=== PATIENT | male | born 1955 | race Caucasian/White ===

== ENCOUNTER 2017-09-13 07:19 | Outpatient (RCR) | payer OTHER, SELFPAY ==
[2017-09-13 09:53] LABS: Absolute Lymphocyte Count 1.91 X10^3/ul (0.83-4.51); Absolute Neutrophil Count 3.1 X10^3/uL (2.0-7.7); Basophil# 0.03 X10^3/uL; Basophil% 0.5 % (0-1); Eosinophils% 1.7 % (0-5); Hematocrit 43.9 % (40-54); Hemoglobin 15.3 g/dl (13.0-16.5); Lymphocyte # 1.91 X10^3/ul (4.0); Lymphocyte % 32.6 % (19-41); Mean Corp Hgb Conc 34.9 g/gl (32-36); Mean Corpuscular Hgb 34.4 pg (27.0-32.0); Mean Corpuscular Volume 98.7 fL (80-94); Mean Platelet Vol. 10.1 fl (6.2-12.0); Monocyte# 0.65 X10^3/uL; Monocyte% 11.1 % (0-10); Neutrophil # 3.14 X10^3/uL (2.7-7.7); Neutrophil % 53.8 % (47-70); Platelet Count 133 K/mm3 (150-450); RBC Distribution Width CV 13.3 % (11.6-14.6); RBC Distribution Width SD 47.2 fl (35.1-43.9); Red Blood Count 4.45 M/mm3 (4.6-6.2); White Blood Count 5.9 K/mm3 (4.4-11.0)
[2017-09-13 09:56] LABS: POSITIVE COUNT NO; POSITIVE DIFFERENTIAL NO; POSITIVE MORPHOLOGY NO
[2017-09-13 10:31] LABS: AST(SGOT) 38 U/L (15-37); Alanine Aminotransfer ALT/SGPT 44 U/L (12-78); Albumin, Serum 3.6 g/dL (3.4-5.0); Alkaline Phosphatase 80 U/L (45-117); Globulin 3.1 g/dL (2.2-4.2); Protein, Total 6.7 g/dL (6.4-8.2)
== END 2017-09-13 08:00 | disposition home or self-care (01) ==
LOC: MTLAB 07:19
PROVIDERS: Family Provider Family Medicine; PCP Family Medicine; Visit Provider Internal Medicine Gastroenterology
DX: K74.60 Unspecified cirrhosis of liver (principal)
CPT/HCPCS: 36415; 80076; 85025

== ENCOUNTER 2017-11-06 07:01 | Outpatient (RCR) | payer OTHER, SELFPAY ==
[2017-11-06 10:14] LABS: Absolute Lymphocyte Count 1.33 X10^3/ul (0.83-4.51); Absolute Neutrophil Count 2.9 X10^3/uL (2.0-7.7); Basophil# 0.02 X10^3/uL; Basophil% 0.4 % (0-1); Eosinophils% 2.1 % (0-5); Hematocrit 44.5 % (40-54); Hemoglobin 15.1 g/dl (13.0-16.5); Lymphocyte # 1.33 X10^3/ul (4.0); Lymphocyte % 27.5 % (19-41); Mean Corp Hgb Conc 33.9 g/gl (32-36); Mean Corpuscular Hgb 33.7 pg (27.0-32.0); Mean Corpuscular Volume 99.3 fL (80-94); Mean Platelet Vol. 9.8 fl (6.2-12.0); Monocyte# 0.53 X10^3/uL; Neutrophil # 2.85 X10^3/uL (2.7-7.7); Platelet Count 123 K/mm3 (150-450); RBC Distribution Width CV 13.5 % (11.6-14.6); RBC Distribution Width SD 48.9 fl (35.1-43.9); Red Blood Count 4.48 M/mm3 (4.6-6.2); White Blood Count 4.8 K/mm3 (4.4-11.0)
[2017-11-06 10:20] LABS: POSITIVE COUNT NO; POSITIVE DIFFERENTIAL NO; POSITIVE MORPHOLOGY NO
[2017-11-06 10:50] LABS: AST(SGOT) 36 U/L (15-37); Alanine Aminotransfer ALT/SGPT 39 U/L (16-61); Albumin, Serum 3.7 g/dL (3.2-5.0); Alkaline Phosphatase 91 U/L (45-117); Bilirubin, Direct 0.19 mg/dL (0.00-0.30); Protein, Total 6.7 g/dL (6.4-8.2)
== END 2017-11-06 08:00 | disposition home or self-care (01) ==
LOC: LAB 07:01
PROVIDERS: Family Provider Family Medicine; PCP Family Medicine; Visit Provider Internal Medicine Gastroenterology
DX: K74.60 Unspecified cirrhosis of liver (principal)
CPT/HCPCS: 36415; 80076; 85025

== ENCOUNTER → 2017-11-29 12:50 | Outpatient (CLI) | payer OTHER, SELFPAY ==
--- NOTE | 2017-11-29 12:54 | RAD_ITS ---
STUDY: X-RAY - RIGHT WRIST REASON FOR EXAM: Male, 62 years old. Injury. Pain. TECHNIQUE: 4 view(s) of the wrist were obtained. COMPARISON: None. FINDINGS: Normal visualized distal radius and ulna. Normal radiocarpal articulation. Normal distal radioulnar articulation. Normal carpal bones. Normal carpal articulations. There is degenerative arthrosis of the carpometacarpal articulation of the thumb. Normal second through fifth carpometacarpal articulations. Normal visualized metacarpal bones. The soft tissue structures are unremarkable. There is no demonstrated acute fracture. RAD/Wrist min 3 Views IMPRESSION: No acute fracture or dislocation. Electronically Signed: Brenden Owens MD at 9:01 EDT , Service support ,
== END ==
PROVIDERS: Family Provider Internal Medicine; PCP Internal Medicine; Visit Provider Internal Medicine
DX: M25.531 Pain in right wrist (principal)
CPT/HCPCS: 73110

== ENCOUNTER → 2017-12-19 07:44 | Outpatient (CLI) | payer OTHER, SELFPAY ==
--- NOTE | 2017-12-19 07:56 | US_ITS ---
STUDY: ABDOMINAL ULTRASOUND - RIGHT UPPER QUADRANT REASON FOR VISIT: Male, 62 years old. History of autoimmune hepatitis. TECHNIQUE: Ultrasound evaluation of the right upper quadrant was performed with real-time and static herrera-scale imaging. TECHNICAL QUALITY: Adequate. COMPARISON: Comparison is made with prior study dated January 17, 2017. FINDINGS: Liver: The liver measures 10.9 cm. There is increased echogenicity consistent with fatty infiltration. The bile ducts are within normal limits. There is hepatic color flow. The direction of portal flow is hepatopetal. There is no demonstrated mass lesion. Gallbladder: Normal distended gallbladder. The gallbladder wall measures 2.7 mm. There is a negative sonographic Quintero's sign. There is no pericholecystic fluid. There are no gallstones. Common Bile Duct (C.B.D.): The common bile duct measures 2.0 mm. Pancreas: Normal size of the head, body of the pancreas. The tail portion was obscured due to overlying bowel gas. There is normal echogenicity of the pancreas. There is no demonstrated pancreatic mass or cyst. Right Kidney: Normal size of the right kidney. The right kidney measures 11.0 cm x 4.5 cm x 6.0 cm. Normal renal cortex. The right cortex measures 1.5 cm. There is no demonstrated renal mass or cyst. There is no right hydronephrosis. US/Liver IMPRESSION: Fatty infiltration of the liver. Electronically Signed: Jelani Miller MD at 8:55 EDT Tel [phone], Service support ,
== END ==
PROVIDERS: Family Provider Internal Medicine; PCP Internal Medicine; Visit Provider Internal Medicine
DX: K75.4 Autoimmune hepatitis (principal)
CPT/HCPCS: 76705

== ENCOUNTER → 2017-12-27 12:06 | Outpatient (CLI) | payer OTHER, SELFPAY ==
[2017-12-27 12:12] LABS: Bacteria 0 SEEN /hpf (None Seen); Mucous, Urine 0 SEEN /hpf (<or=2+); Red Blood Cells-Urine 0 SEEN /hpf (0-5); White Blood Cells 0 SEEN /hpf (0-5)
[2017-12-27 12:29] LABS: Color, Urine Yellow (Yellow); Glucose, Dipstick Normal (Normal); Ketone-Dipstick Negative (Negative); Leukocyte Esterase-Dipstick Negative /ul (Negative); Nitrite-Dipstick Negative (Negative); Occult Blood-Urine Negative /ul (Negative); Protein-Dipstick Negative (Negative); Urine Bilirubin Dipstick Negative (Negative); Urine Clarity Clear (Clear); Urine Urobilinogen Normal (Normal)
[2017-12-27 12:38] LABS: Squamous Epithelial Cells - UA 0-5 SEEN /hpf (0-5)
[2017-12-27 12:44] LABS: Vitamin B12 1044 pg/mL (211-911)
[2017-12-27 12:49] LABS: ALB/GLOB Ratio 1.4 RATIO (0.9-2.4); AST(SGOT) 33 U/L (15-37); Alanine Aminotransfer ALT/SGPT 36 U/L (16-61); Albumin, Serum 3.8 g/dL (3.2-5.0); Alkaline Phosphatase 88 U/L (45-117); Anion Gap 8 (5-15); BUN 14 mg/dL (7-18); BUN/Creat Ratio 15.1 RATIO (10-20); Calcium,Total 8.7 mg/dL (8.5-10.1); Chloride 105 mmol/L (98-107); Creatinine, Serum 0.93 mg/dL (0.70-1.30); EST Glomerular Filtration Rate 87 mL/min (>60); Est Glom Filt Rate - Afr Amer 105 mL/min (>60); Globulin 2.8 g/dL (2.2-4.2); Glucose 85 mg/dL (74-106); Magnesium 2.2 mg/dL (1.6-2.6); PSA,Total - Annual Screen 0.39 ng/mL (0.00-4.00); Potassium 4.3 mmol/L (3.5-5.1); Protein, Total 6.6 g/dL (6.4-8.2); Sodium Level 144 mmol/L (136-145)
[2017-12-27 13:12] LABS: International Normalized Ratio 1.1
[2017-12-27 13:13] LABS: Partial Thromboplast Time 31.9 Seconds (24.1-36.2)
[2017-12-28 08:50] LABS: AFP, Tumor Marker 2.4 ng/mL (0.0-8.3)
== END ==
PROVIDERS: Visit Provider Internal Medicine
DX: I48.91 Unspecified atrial fibrillation (principal); D75.89 Other specified diseases of blood and blood-forming organs; K75.4 Autoimmune hepatitis; R25.2 Cramp and spasm; Z12.5 Encounter for screening for malignant neoplasm of prostate
CPT/HCPCS: 80053; 81001; 82105; 82607; 82746; 83735; 84153; 85610; 85730; G0103

== ENCOUNTER → 2018-01-19 09:27 | Outpatient (CLI) | payer OTHER, SELFPAY ==
--- NOTE | 2018-01-19 09:31 | RAD_ITS ---
STUDY: X-RAY - THORACIC SPINE REASON FOR EXAM: Male, 62 years old. Pain. TECHNIQUE: 3 view(s) of the thoracic spine were obtained. COMPARISON: None. FINDINGS: Normal kyphosis of the thoracic spine. There is no substantial scoliosis. Normal thoracic vertebrae and endplates. Normal disc space heights. The soft tissue structures are unremarkable. RAD/Thoracic Spine 3 Views IMPRESSION: Normal x-ray examination of the thoracic spine. Electronically Signed: Brenden Owens MD at 16:52 EDT , Service support ,
--- NOTE | 2018-01-19 09:31 | RAD_ITS ---
STUDY: X-RAY - UNILATERAL RIBS ( RIGHT ) REASON FOR EXAM: Male, 62 years old. Pain. Injury. TECHNIQUE: 4 view(s) of the ribs. COMPARISON: None. FINDINGS: Normal visualized ribs without a demonstrated fracture. The visualized lung is clear and expanded. RAD/Ribs Unil 2V No CXR IMPRESSION: Normal x-ray examination of the ribs. Electronically Signed: Brenden Owens MD at 17:02 EDT , Service support ,
== END ==
PROVIDERS: Family Provider Internal Medicine; PCP Internal Medicine; Visit Provider Internal Medicine
DX: M25.511 Pain in right shoulder (principal)
CPT/HCPCS: 71100; 72072

== ENCOUNTER → 2018-04-04 08:10 | Outpatient (CLI) | payer OTHER, SELFPAY ==
[2018-04-04 10:05] LABS: Absolute Lymphocyte Count 1.36 X10^3/ul (0.83-4.51); Absolute Neutrophil Count 3.1 X10^3/uL (2.0-7.7); Basophil# 0.02 X10^3/uL; Basophil% 0.4 % (0-1); Eosinophil# 0.08 X10^3/uL; Eosinophils% 1.6 % (0-5); Hematocrit 44.1 % (40-54); Hemoglobin 15.3 g/dl (13.0-16.5); Lymphocyte # 1.36 X10^3/ul (4.0); Lymphocyte % 27.3 % (19-41); Mean Corp Hgb Conc 34.7 g/gl (32-36); Mean Corpuscular Hgb 32.8 pg (27.0-32.0); Mean Corpuscular Volume 94.4 fL (80-94); Mean Platelet Vol. 9.7 fl (6.2-12.0); Monocyte# 0.39 X10^3/uL; Monocyte% 7.8 % (0-10); Neutrophil # 3.13 X10^3/uL (2.7-7.7); Neutrophil % 62.7 % (47-70); Platelet Count 143 K/mm3 (150-450); RBC Distribution Width SD 43.9 fl (35.1-43.9); Red Blood Count 4.67 M/mm3 (4.6-6.2)
[2018-04-04 10:11] LABS: POSITIVE COUNT NO; POSITIVE DIFFERENTIAL NO; POSITIVE MORPHOLOGY NO
[2018-04-04 10:39] LABS: AST(SGOT) 33 U/L (15-37); Alanine Aminotransfer ALT/SGPT 33 U/L (16-61); Albumin, Serum 3.7 g/dL (3.2-5.0); Alkaline Phosphatase 90 U/L (45-117); Bilirubin, Direct 0.24 mg/dL (0.00-0.30); Globulin 3.3 g/dL (2.2-4.2)
== END ==
PROVIDERS: Internal Medicine Gastroenterology; Family Provider Internal Medicine; PCP Internal Medicine; Visit Provider Internal Medicine
DX: K74.60 Unspecified cirrhosis of liver (principal)
CPT/HCPCS: 36415; 80076; 85025

== ENCOUNTER → 2018-06-20 07:15 | Outpatient (CLI) | payer OTHER, SELFPAY ==
--- NOTE | 2018-06-20 07:42 | US_ITS ---
STUDY: ABDOMINAL ULTRASOUND - RIGHT UPPER QUADRANT REASON FOR VISIT: Male, 62 years old. Autoimmune hepatitis. Liver biopsy 2017. TECHNIQUE: Ultrasound evaluation of the right upper quadrant was performed with real-time and static herrera-scale imaging. TECHNICAL QUALITY: Adequate. COMPARISON: Right upper quadrant abdominal ultrasound 12/19/2017. Correlation CT abdomen 01/18/2017. FINDINGS: Liver: The liver measures 15.5 cm sagittal. There is diffuse hyperechogenicity of the liver again seen consistent with fatty infiltration, appears relatively unchanged where comparable. The bile ducts visualized within normal limits. There is hepatic color flow. The direction of portal flow appears hepatopetal. There is no demonstrated mass lesion identified. Gallbladder: Normal distended gallbladder. The gallbladder wall measures 2.4 mm thick. There is a negative sonographic Quintero's sign. There is no pericholecystic fluid. There are no gallstones identified. Common Bile Duct (C.B.D.): The common bile duct measures 2.9 mm. Pancreas: Normal size of the head, body and tail of the pancreas. There is normal echogenicity of the pancreas. There is no demonstrated pancreatic mass or cyst. Visualized pancreas shows no Ductal dilatation the portions of the head and tail are partially disturbed by overlying bowel gas. Right Kidney: Normal size of the right kidney. The right kidney measures 11.0 x 4.1 x 5.9 cm. Normal renal cortex. The right cortex measures 1.9 cm. There is no demonstrated renal mass or cyst. There is no right hydronephrosis. US/Liver IMPRESSION: Nonacute right upper quadrant ultrasound examination with relatively unchanged diffuse hepatic fatty infiltration again seen. Electronically Signed: Art Todd, at 11:47 EDT Tel , Service support ,
[2018-06-20 08:53] LABS: Absolute Lymphocyte Count 1.18 X10^3/ul (0.83-4.51); Absolute Neutrophil Count 2.6 X10^3/uL (2.0-7.7); Basophil# 0.02 X10^3/uL; Basophil% 0.5 % (0-1); Eosinophil# 0.08 X10^3/uL; Eosinophils% 1.9 % (0-5); Hematocrit 44.2 % (40-54); Hemoglobin 15.3 g/dl (13.0-16.5); Lymphocyte # 1.18 X10^3/ul (4.0); Lymphocyte % 28.2 % (19-41); Mean Corp Hgb Conc 34.6 g/gl (32-36); Mean Corpuscular Volume 95.5 fL (80-94); Mean Platelet Vol. 9.6 fl (6.2-12.0); Monocyte# 0.29 X10^3/uL; Monocyte% 6.9 % (0-10); Neutrophil # 2.61 X10^3/uL (2.7-7.7); Neutrophil % 62.3 % (47-70); Platelet Count 131 K/mm3 (150-450); RBC Distribution Width CV 13.2 % (11.6-14.6); RBC Distribution Width SD 45.1 fl (35.1-43.9); Red Blood Count 4.63 M/mm3 (4.6-6.2); White Blood Count 4.2 K/mm3 (4.4-11.0)
[2018-06-20 09:19] LABS: POSITIVE COUNT NO; POSITIVE DIFFERENTIAL NO; POSITIVE MORPHOLOGY NO
[2018-06-20 09:40] LABS: AST(SGOT) 26 U/L (15-37); Alanine Aminotransfer ALT/SGPT 30 U/L (16-61); Albumin, Serum 3.7 g/dL (3.2-5.0); Alkaline Phosphatase 82 U/L (45-117); Bilirubin, Direct 0.21 mg/dL (0.00-0.30); Globulin 3.3 g/dL (2.2-4.2)
[2018-06-22 13:44] LABS: AFP, Tumor Marker 2.8 ng/mL (0.0-8.3)
== END ==
PROVIDERS: Family Provider Internal Medicine; PCP Internal Medicine; Referring Provider Internal Medicine; Visit Provider Internal Medicine
DX: K75.4 Autoimmune hepatitis (principal)
CPT/HCPCS: 36415; 76705; 80076; 82105; 85025

== ENCOUNTER → 2018-06-27 09:08 | Outpatient (CLI) | payer OTHER, SELFPAY ==
[2018-06-27 10:45] LABS: Erythrocyte Sedimentation Rate 3 mm/hr (0-20)
[2018-06-27 11:18] LABS: CRP < 2.90 mg/L (0.0-3.0); Rheumatoid Factor < 10.0 IU/mL (<15)
[2018-06-28 10:28] LABS: Hep B Surface Antibodies Non Reactive (.); Hep C Antibodies 0.1 s/co ratio (0.0-0.9)
[2018-06-29 09:52] LABS: ANTINUCLEAR ANTIBODIES DIRECT Negative (Negative)
== END ==
PROVIDERS: Family Provider Internal Medicine; PCP Internal Medicine; Referring Provider Internal Medicine; Visit Provider Internal Medicine
DX: K75.4 Autoimmune hepatitis (principal); M25.50 Pain in unspecified joint
CPT/HCPCS: 36415; 85652; 86038; 86140; 86431; 86706; 86803

== ENCOUNTER → 2018-09-24 07:11 | Outpatient (CLI) | payer OTHER, SELFPAY ==
[2018-09-24 10:10] LABS: Absolute Lymphocyte Count 1.35 X10^3/ul (0.83-4.51); Absolute Neutrophil Count 2.8 X10^3/uL (2.0-7.7); Basophil# 0.01 X10^3/uL; Basophil% 0.2 % (0-1); Eosinophil# 0.08 X10^3/uL; Eosinophils% 1.7 % (0-5); Hematocrit 45.2 % (40-54); Hemoglobin 15.6 g/dl (13.0-16.5); Lymphocyte # 1.35 X10^3/ul (4.0); Lymphocyte % 29.2 % (19-41); Mean Corp Hgb Conc 34.5 g/gl (32-36); Mean Corpuscular Hgb 33.1 pg (27.0-32.0); Mean Platelet Vol. 10.3 fl (6.2-12.0); Monocyte# 0.42 X10^3/uL; Monocyte% 9.1 % (0-10); Neutrophil # 2.75 X10^3/uL (2.7-7.7); Neutrophil % 59.6 % (47-70); Platelet Count 145 K/mm3 (150-450); RBC Distribution Width CV 13.4 % (11.6-14.6); RBC Distribution Width SD 46.1 fl (35.1-43.9); Red Blood Count 4.71 M/mm3 (4.6-6.2); White Blood Count 4.6 K/mm3 (4.4-11.0)
[2018-09-24 10:18] LABS: POSITIVE COUNT NO; POSITIVE DIFFERENTIAL NO; POSITIVE MORPHOLOGY NO
[2018-09-24 10:20] LABS: AST(SGOT) 29 U/L (15-37); Alanine Aminotransfer ALT/SGPT 28 U/L (16-61); Alkaline Phosphatase 92 U/L (45-117); Bilirubin, Direct 0.19 mg/dL (0.00-0.30)
== END ==
PROVIDERS: Family Provider Internal Medicine; PCP Internal Medicine; Referring Provider Internal Medicine; Visit Provider Internal Medicine
DX: K75.4 Autoimmune hepatitis (principal)
CPT/HCPCS: 36415; 80076; 85025

== ENCOUNTER → 2019-01-01 12:45 | Outpatient (CLI) | payer OTHER, SELFPAY ==
--- NOTE | 2019-01-01 12:50 | CT_ITS ---
STUDY: CT ABDOMEN WITH CONTRAST REASON FOR EXAM: Male, 63 years old. Cirrhosis, on Augmentin hepatitis 2 years ago with treatment. No prior surgery. RADIATION DOSAGE (If Supplied By Facility): CTDIvol = ( 14.36 ) mGy, DLP = ( 301.36 ) mGycm TECHNIQUE: Transaxial images were obtained post I.V. administration of 100mL IV Isovue 300, and oral contrast. Sagittal and coronal images were reconstructed. Individualized dose optimization techniques were used for this CT. COMPARISON: January 18, 2017. FINDINGS: The visualized lung bases demonstrate a 1.9 mm, round, noncalcified margin in the left lateral periphery of the left lower lobe, sequence 2, image 15. There are small foci of scattered subsegmental atelectasis. There is no pleural effusion. There is no pneumothorax. The visualized portions of the heart are within normal limits. Normal appearing liver. Normal gallbladder and extrahepatic biliary system. Normal spleen. Normal pancreas. Normal bilateral adrenal glands. Normal right kidney. Normal left kidney. Normal visualized stomach. Normal small intestine. A few, scattered, uncomplicated colonic diverticula are identified. There are surgical clips in the region of the appendix consistent with a prior appendectomy. There is no free fluid. There is no free air. Normal abdominal aorta except for scattered calcified plaque throughout visualized aortoiliac system. Normal inferior vena cava. Normal retroperitoneum. There are stable, subcentimeter, grouped lymph nodes in the mesentery adjacent to the splenic flexure seen best on the current sequence 2, images 49 through 48 and on the comparison exam sequence 2 images 56 and 55. These findings are nonspecific. Normal abdominal wall. Normal osseous structures. CT/Abdomen WITH IV Contrast IMPRESSION: Nonspecific, 2 mm noncalcified nodule in the left lateral periphery of the left lower lobe on sequence 2, image 15. Normal appearing liver gallbladder and biliary system. Diverticulosis without evident diverticulitis. Atherosclerotic peripheral vascular disease. Nonspecific lymph nodes in the mesentery adjacent to the splenic flexure. These are stable. Consider continued follow-up to document stability. Of note, multiple additional root of mesentery lymph nodes are present that also appears stable. No suspicious lytic or blastic osseous finding. Electronically Signed: Leroy Juan MD at 13:47 EDT , Service support ,
[2019-01-01 13:00] LABS: CREATININE FINGERSTICK 0.8 mg/dL (0.70-1.30); EGFR FINGERSTICK > 60.0000 mL/min (>60)
== END ==
PROVIDERS: Family Provider Internal Medicine; PCP Internal Medicine; Referring Provider Internal Medicine Gastroenterology; Visit Provider Internal Medicine Gastroenterology
DX: K74.60 Unspecified cirrhosis of liver (principal)
CPT/HCPCS: 74160; Q9967

== ENCOUNTER → 2019-01-04 10:01 | Outpatient (CLI) | payer OTHER, SELFPAY ==
[2019-01-04 10:54] LABS: ALB/GLOB Ratio 1.6 RATIO (0.9-2.4); AST(SGOT) 32 U/L (15-37); Alanine Aminotransfer ALT/SGPT 26 U/L (16-61); Albumin, Serum 4.4 g/dL (3.2-5.0); Alkaline Phosphatase 91 U/L (45-117); Anion Gap 6 (5-15); BUN 19 mg/dL (7-18); BUN/Creat Ratio 17.9 RATIO (10-20); Calcium,Total 9.2 mg/dL (8.5-10.1); Chloride 106 mmol/L (98-107); Creatinine, Serum 1.06 mg/dL (0.70-1.30); EST Glomerular Filtration Rate 75 mL/min (>60); Est Glom Filt Rate - Afr Amer 90 mL/min (>60); Globulin 2.7 g/dL (2.2-4.2); Glucose 84 mg/dL (74-106); PSA,Total - Annual Screen 0.31 ng/mL (0.00-4.00); Potassium 4.4 mmol/L (3.5-5.1); Protein, Total 7.1 g/dL (6.4-8.2); Sodium Level 140 mmol/L (136-145)
[2019-01-05 15:09] LABS: AFP, Tumor Marker 2.8 ng/mL (0.0-8.3)
== END ==
PROVIDERS: Family Provider Internal Medicine; PCP Internal Medicine; Referring Provider Internal Medicine; Visit Provider Internal Medicine
DX: I48.91 Unspecified atrial fibrillation (principal); K75.4 Autoimmune hepatitis; Z12.5 Encounter for screening for malignant neoplasm of prostate
CPT/HCPCS: 80053; 82105; 84153; G0103

== ENCOUNTER → 2019-02-22 13:51 | Outpatient (CLI) | payer OTHER, SELFPAY ==
--- NOTE | 2019-02-22 13:57 | CT_ITS ---
STUDY: CARDIAC CALCIUM SCORING - CT CHEST REASON FOR EXAM: Male, 63 years old. Screening RADIATION DOSAGE (If Supplied By Facility): CTDIvol = ( 12.19 ) mGy, DLP = ( 170.66 ) mGycm TECHNIQUE: Axial non-enhanced images were acquired through the heart for the sole purpose of measuring coronary artery calcium. Individualized dose optimization techniques were used for this CT. COMPARISON: None. FINDINGS: Visualized surrounding anatomy: 4 mm nodule in the right upper lobe (image 19 series 3). Left Main Coronary Artery: 0 Left Anterior Descending Artery: 0 Left Circumflex Artery: 0 Right Coronary Artery: 0 Total Calcium Score: 0 CT/Limited Chest CT w/CCTA IMPRESSION: A Calcium Score of 0 places the patient in the approximate 0 percentile, based on the [employer] data calculator. 4 mm nodule in the right lung. A dedicated chest CT is recommended. Please go to: [email or web address].org/Calcium/input.aspx , for a description of the calculator. Electronically Signed: Josh Padron, at 15:31 EDT Tel , Service support ,
[2019-02-22 14:03] VITALS: BP 131/78; PULSE 56; RESP 16; O2SAT 100; BMI 22.8
--- NOTE | 2019-02-25 13:21 | CA.SCORE ---
Calcium Scoring Date of Study:: 02/25/19 Coronary Calcium Scoring: High-resolution Computed Tomographic imaging of the chest was performed on [02/22/2019], with particular attention paid to the coronary arteries. Images from the examination were analyzed for the presence and extent of coronary artery calcification , using coronary calcium quantification software. The patient tolerated the procedure well and there were no complications. The results of the coronary calcification analysis are provided below. - Findings Left Main (LM): 0 Left Anterior Descending (LAD): 0 Left Circumflex (LCX): 0 Right Coronary Artery (RCA): 0 Total Agatston Score: 0 Percentile Rankin - Conclusion Calcium Scoring Interpretation: Calcium Score Interpretation 0 No identifiable atherosclerotic plaque. Very low cardiovascular disease risk. <5% chance of presence coronary artery disease A Negative Examination 1-10 Minimal Plaque burden. Significant coronary artery disease very unlikely. 11-100 Mild plaque burden. Likely mild or minimal coronary atherosclerosis. 101-400 Moderate plaque burden Moderate non-obstructive coronary artery disease highly likely. Over 400 Extensive plaque burden. High likelihood of at least one significant coronary stenosis (>50% diameter) Calcium Score: 0 Negative Examination - No significant atherosclerotic plaquing is noted.
== END ==
PROVIDERS: Family Provider Internal Medicine; PCP Internal Medicine; Referring Provider Internal Medicine; Visit Provider Internal Medicine
DX: Z13.6 Encounter for screening for cardiovascular disorders (principal)
CPT/HCPCS: 75571; 76380

== ENCOUNTER → 2019-03-12 06:50 | Outpatient (CLI) | payer OTHER, SELFPAY ==
[2019-02-22 14:03] VITALS: BMI 22.8
--- NOTE | 2019-03-12 06:57 | CT_ITS ---
STUDY: CT CHEST WITH CONTRAST REASON FOR EXAM: Male, 63 years old. Lung nodule follow-up. History of autoimmune hepatitis. RADIATION DOSAGE (If Supplied By Facility): CTDIvol = ( 12.95 ) mGy, DLP = ( 358.34 ) mGycm TECHNIQUE: Transaxial imaging was performed following intravenous administration of 100 IV Isovue 300. Multiplanar coronal and sagittal images were reformatted. Individualized dose optimization techniques were used for this CT. COMPARISON: Calcium scoring CT chest, February 22, 2019. FINDINGS: The lungs are well expanded. There is a 4 mm calcified granuloma in the anterior right upper lobe (image 30, series 4. There is a 5 mm soft tissue nodule in the left upper lobe along the oblique fissure best seen on image 74 of series 4. No other masses or infiltrates are seen. There is no demonstrated pleural abnormality. Normal heart and pericardium. Normal mediastinum. Normal hilar regions. Normal enhanced pulmonary arteries. Normal aorta arch and descending thoracic aorta. Normal osseous structures. There are minimal degenerative changes of the lower thoracic spine. There are small hypodensities in the right thyroid. There is no demonstrated abnormality of the visualized upper abdomen. CT/Chest WITH Contrast IMPRESSION: 1. 5 millimeter nodule in the left lower lobe. A 12 month follow-up should be considered due to the upper lobe location. 2. Calcified granuloma in the right upper lobe. 3. Otherwise normal CT of the chest. Electronically Signed: Chacho Wilson DO at 16:53 EDT Tel [phone], Service support ,
[2019-03-12 07:06] LABS: CREATININE FINGERSTICK 0.9 mg/dL (0.70-1.30); EGFR FINGERSTICK > 60.0000 mL/min (>60)
== END ==
PROVIDERS: Family Provider Internal Medicine; PCP Internal Medicine; Referring Provider Internal Medicine; Visit Provider Internal Medicine
DX: R91.1 Solitary pulmonary nodule (principal); Z01.812 Encounter for preprocedural laboratory examination
CPT/HCPCS: 71260; Q9967

== ENCOUNTER 2019-03-27 07:04 | Outpatient (RCR) | payer OTHER, SELFPAY ==
[2019-02-22 14:03] VITALS: BMI 22.8
[2019-03-27 10:16] LABS: Absolute Lymphocyte Count 1.32 X10^3/uL (0.83-4.51); Absolute Neutrophil Count 3.2 X10^3/uL (2.0-7.7); Basophil# 0.02 X10^3/uL; Basophil% 0.4 % (0-1); Hematocrit 45.7 % (40-54); Hemoglobin 15.4 g/dL (13.0-16.5); Lymphocyte # 1.32 X10^3/ul (4.0); Lymphocyte % 25.9 % (19-41); Mean Corp Hgb Conc 33.7 g/dL (32-36); Mean Corpuscular Hgb 33.1 pg (27.0-32.0); Mean Corpuscular Volume 98.3 fL (80-94); Mean Platelet Vol. 10.2 fl (6.2-12.0); Monocyte# 0.41 X10^3/uL; NRBC Flagged by Analyzer 0 % (0-5); Neutrophil # 3.24 X10^3/uL (2.7-7.7); Neutrophil % 63.5 % (47-70); Platelet Count 147 K/mm3 (150-450); RBC Distribution Width CV 13.1 % (11.6-14.6); RBC Distribution Width SD 47.7 fl (35.1-43.9); Red Blood Count 4.65 M/mm3 (4.6-6.2); White Blood Count 5.1 K/mm3 (4.4-11.0)
[2019-03-27 10:49] LABS: ALB/GLOB Ratio 1.3 RATIO (0.9-2.4); AST(SGOT) 22 U/L (15-37); Alanine Aminotransfer ALT/SGPT 27 U/L (16-61); Alkaline Phosphatase 86 U/L (45-117); Anion Gap 8 (5-15); BUN 18 mg/dL (7-18); BUN/Creat Ratio 19.4 RATIO (10-20); Calcium,Total 9.1 mg/dL (8.5-10.1); Chloride 107 mmol/L (98-107); Creatinine, Serum 0.93 mg/dL (0.70-1.30); EST Glomerular Filtration Rate 87 mL/min (>60); Est Glom Filt Rate - Afr Amer 105 mL/min (>60); Glucose 84 mg/dL (74-106); Sodium Level 143 mmol/L (136-145)
[2019-03-28 10:37] LABS: AFP, Tumor Marker 2.6 ng/mL (0.0-8.3)
[2019-04-01 14:13] LABS: Bilirubin, Direct 0.18 mg/dL (0.00-0.30)
== END 2019-04-10 23:59 ==
LOC: LAB.FUTURE 07:04
PROVIDERS: Family Provider Internal Medicine; PCP Internal Medicine; Referring Provider Internal Medicine; Visit Provider Internal Medicine
DX: K75.4 Autoimmune hepatitis (principal)
CPT/HCPCS: 36415; 80053; 82105; 82248; 85025

== ENCOUNTER 2019-06-20 07:01 | Outpatient (RCR) | payer OTHER, SELFPAY ==
[2019-02-22 14:03] VITALS: BMI 22.8
[2019-06-20 10:41] LABS: Absolute Lymphocyte Count 0.98 X10^3/uL (0.83-4.51); Absolute Neutrophil Count 3.5 X10^3/uL (2.0-7.7); Basophil# 0.03 X10^3/uL; Basophil% 0.6 % (0-1); Eosinophil# 0.09 X10^3/uL; Eosinophils% 1.8 % (0-5); Hematocrit 45.3 % (40-54); Hemoglobin 15.1 g/dL (13.0-16.5); Lymphocyte # 0.98 X10^3/ul (4.0); Lymphocyte % 19.1 % (19-41); Mean Corp Hgb Conc 33.3 g/dL (32-36); Mean Corpuscular Volume 98.9 fL (80-94); Mean Platelet Vol. 10.1 fl (6.2-12.0); Monocyte# 0.49 X10^3/uL; Monocyte% 9.6 % (0-10); NRBC Flagged by Analyzer 0 % (0-5); Neutrophil # 3.53 X10^3/uL (2.7-7.7); Neutrophil % 68.7 % (47-70); Platelet Count 133 K/mm3 (150-450); RBC Distribution Width CV 12.8 % (11.6-14.6); RBC Distribution Width SD 46.9 fl (35.1-43.9); Red Blood Count 4.58 M/mm3 (4.6-6.2); White Blood Count 5.1 K/mm3 (4.4-11.0)
[2019-06-20 11:14] LABS: AST(SGOT) 28 U/L (15-37); Alanine Aminotransfer ALT/SGPT 26 U/L (16-61); Albumin, Serum 3.9 g/dL (3.2-5.0); Alkaline Phosphatase 85 U/L (45-117); Bilirubin, Direct 0.25 mg/dL (0.00-0.30); Protein, Total 6.9 g/dL (6.4-8.2)
[2019-06-21 08:56] LABS: AFP, Tumor Marker 2.5 ng/mL (0.0-8.3)
== END 2019-07-11 23:59 ==
LOC: LAB.FUTURE 07:01
PROVIDERS: Family Provider Internal Medicine; PCP Internal Medicine; Referring Provider Internal Medicine; Visit Provider Internal Medicine
DX: K75.4 Autoimmune hepatitis (principal)
CPT/HCPCS: 36415; 80076; 82105; 85025

== ENCOUNTER → 2019-06-25 09:49 | Outpatient (CLI) | payer OTHER, SELFPAY ==
[2019-02-22 14:03] VITALS: BMI 22.8
--- NOTE | 2019-06-25 09:53 | US_ITS ---
STUDY: ABDOMINAL ULTRASOUND - RIGHT UPPER QUADRANT REASON FOR VISIT: Male, 63 years old autoimmune hepatitis. TECHNIQUE: Ultrasound evaluation of the right upper quadrant was performed with real-time and static herrera-scale imaging. TECHNICAL QUALITY: Adequate. COMPARISON: None. FINDINGS: Liver: The liver measures 14.5 cm. There is normal echogenicity of the liver. The bile ducts are within normal limits. There is hepatic color flow. The direction of portal flow is hepatopetal. There is no demonstrated mass lesion. Gallbladder: Normal distended gallbladder. The gallbladder wall measures 1.9 mm. There is a negative sonographic Quintero's sign. There is no pericholecystic fluid. There are no gallstones. Common Bile Duct (C.B.D.): The common bile duct measures 2.6 mm. Pancreas: Normal size of the head, body and tail of the pancreas. There is normal echogenicity of the pancreas. There is no demonstrated pancreatic mass or cyst. Right Kidney: Normal size of the right kidney. The right kidney measures 10.3 cm in length. Normal renal cortex. There is no demonstrated renal mass or cyst. There is no right hydronephrosis. US/Liver IMPRESSION: Within normal limits right upper quadrant ultrasound examination. Electronically Signed: Shirley Knowles MD at 16:31 EDT Tel , Service support ,
== END ==
PROVIDERS: Family Provider Internal Medicine; PCP Internal Medicine; Referring Provider Internal Medicine; Visit Provider Internal Medicine
DX: K75.4 Autoimmune hepatitis (principal)
CPT/HCPCS: 76705

== ENCOUNTER 2019-10-04 07:22 | Outpatient (RCR) | payer MEDICARE, BC, SELFPAY ==
[2019-02-22 14:03] VITALS: BMI 22.8
[2019-10-04 10:22] LABS: Absolute Lymphocyte Count 1.33 X10^3/uL (0.83-4.51); Absolute Neutrophil Count 2.8 X10^3/uL (2.0-7.7); Basophil# 0.03 X10^3/uL; Basophil% 0.6 % (0-1); Eosinophil# 0.11 X10^3/uL; Eosinophils% 2.3 % (0-5); Hematocrit 46.1 % (40-54); Hemoglobin 15.6 g/dL (13.0-16.5); Lymphocyte # 1.33 X10^3/ul (4.0); Lymphocyte % 28.2 % (19-41); Mean Corp Hgb Conc 33.8 g/dL (32-36); Mean Corpuscular Hgb 33.1 pg (27.0-32.0); Mean Corpuscular Volume 97.7 fL (80-94); Mean Platelet Vol. 10.4 fl (6.2-12.0); Monocyte# 0.46 X10^3/uL; Monocyte% 9.8 % (0-10); NRBC Flagged by Analyzer 0 % (0-5); Neutrophil # 2.77 X10^3/uL (2.7-7.7); Neutrophil % 58.9 % (47-70); Platelet Count 138 K/mm3 (150-450); RBC Distribution Width CV 12.7 % (11.6-14.6); RBC Distribution Width SD 45.7 fl (35.1-43.9); Red Blood Count 4.72 M/mm3 (4.6-6.2); White Blood Count 4.7 K/mm3 (4.4-11.0)
[2019-10-04 10:38] LABS: AST(SGOT) 22 U/L (15-37); Alanine Aminotransfer ALT/SGPT 27 U/L (16-61); Albumin, Serum 4.2 g/dL (3.2-5.0); Alkaline Phosphatase 75 U/L (45-117); Bilirubin, Direct 0.18 mg/dL (0.00-0.30); Globulin 2.8 g/dL (2.2-4.2)
== END 2019-10-04 18:00 | disposition home or self-care (01) ==
LOC: MTLAB 07:22
PROVIDERS: Family Provider Internal Medicine; PCP Internal Medicine; Referring Provider Internal Medicine; Visit Provider Internal Medicine
DX: K75.4 Autoimmune hepatitis (principal)
CPT/HCPCS: 36415; 80076; 85025

== ENCOUNTER → 2019-10-16 08:12 | Outpatient (CLI) | payer MEDICARE, BC, SELFPAY ==
[2019-02-22 14:03] VITALS: BMI 22.8
--- NOTE | 2019-10-16 08:20 | BD_ITS ---
STUDY: DUAL ENERGY X-RAY ABSORPTIOMETRY / DXA REASON FOR EXAM: Male, 64 years old. HX OF [facility] STEROID MED USE- NO LONGER ON PREDNISONE -- TAKES MULTIVITAMIN -- DOES HIGH AMOUNT OF EXERCISE -- FAMILY HX OF OSTEO- MOTHER -- TAMELA OF 1 INCH TECHNIQUE: Bone Mineral Density (BMD) measurements of lumbar spine and bilateral hips were obtained. COMPARISON: Comparison is made with prior study dated May 31, 2017. FINDINGS: Lumbar Spine (L1-L4): g/cm2 (1.238) / T-score (0.3) / Z-score (0.8) Findings are suggestive of normal bone density with a low fracture risk. Left Femur Total: g/cm2 (0.985) / T-score (-0.8) / Z-score (-0.3) Left Femoral Neck: g/cm2 (0.877) / T-score (-1.5) / Z-score (-0.4) Right Femur Total: g/cm2 (1.000) / T-score (-0.7) / Z-score (-0.2) Right Femoral Neck: g/cm2 (0.871) / T-score (-1.5) / Z-score (-0.4) The T-Scores on the most recent prior examination were: Lumbar Spine (L1-L4): There has been worsening of bone density since the previous examination. Left Femur Total: which represents a worsening of 2.6%. Right Femur Total: which represents a worsening of 1.4%. BD/Dexa Bone Density Study IMPRESSION: The patient is considered osteopenic as outlined below according to World Jamar Organization (WHO) criteria with a moderate fracture risk. There has been worsening of bone density since the previous examination. Reference Information: The T-score is the number of standard deviations above or below the standard which is normal for young adults at their peak bone mineral density. The World Health Organization (WHO) interprets the T-scores as follows: Above -1 Normal bone density Between -1 and -2.5 Osteopenia Equal to / or below -2.5 Osteoporosis As a practical clinical guideline, osteopenia may be graded as follows: Mild -1 through -1.5 Moderate -1.6 through -2.0 Severe -2.1 through -2.4 The Z-score is the number of standard deviations above or below age-matched controls. A Z-score of less than -1.5 would be considered abnormal. References: 1. NIH Osteoporosis and Related Bone Diseases http://www.osteo.org 2. International Society for Clinical Densitometry http://www.iscd.org 3. National Osteoporosis Foundation http://www.nof.org Electronically Signed: Jelani Miller, at 16:53 EST , Service support ,
== END ==
PROVIDERS: PCP Internal Medicine; Referring Provider Internal Medicine; Visit Provider Internal Medicine
DX: M85.89 Other specified disorders of bone density and structure, multiple sites (principal)
CPT/HCPCS: 77080

== ENCOUNTER → 2019-12-30 13:11 | Outpatient (CLI) | payer MEDICARE, BC, SELFPAY ==
[2019-02-22 14:03] VITALS: BMI 22.8
[2019-12-30 09:55] LABS: Absolute Lymphocyte Count 1.26 X10^3/uL (0.83-4.51); Absolute Neutrophil Count 2.5 X10^3/uL (2.0-7.7); Basophil# 0.03 X10^3/uL; Basophil% 0.7 % (0-1); Eosinophils% 2.3 % (0-5); Hematocrit 43.5 % (40-54); Hemoglobin 14.8 g/dL (13.0-16.5); Lymphocyte # 1.26 X10^3/ul (4.0); Lymphocyte % 29.2 % (19-41); Mean Corpuscular Hgb 33.7 pg (27.0-32.0); Mean Corpuscular Volume 99.1 fL (80-94); Mean Platelet Vol. 10.1 fl (6.2-12.0); Monocyte# 0.39 X10^3/uL; NRBC Flagged by Analyzer 0 % (0-5); Neutrophil # 2.53 X10^3/uL (2.7-7.7); Neutrophil % 58.6 % (47-70); Platelet Count 123 K/mm3 (150-450); RBC Distribution Width CV 12.8 % (11.6-14.6); RBC Distribution Width SD 46.8 fl (35.1-43.9); Red Blood Count 4.39 M/mm3 (4.6-6.2); White Blood Count 4.3 K/mm3 (4.4-11.0)
[2019-12-30 10:09] LABS: AST(SGOT) 23 U/L (15-37); Alanine Aminotransfer ALT/SGPT 24 U/L (16-61); Albumin, Serum 3.9 g/dL (3.2-5.0); Alkaline Phosphatase 84 U/L (45-117); Bilirubin, Direct 0.17 mg/dL (0.00-0.30); Globulin 2.7 g/dL (2.2-4.2); Protein, Total 6.6 g/dL (6.4-8.2)
--- NOTE | 2019-12-30 13:15 | CT_ITS ---
STUDY: CT ABDOMEN WITH CONTRAST REASON FOR EXAM: Male, 64 years old. AUTOIMMUNE HEPATITIS, CIRRHOSIS RADIATION DOSAGE (If Supplied By Facility): CTDIvol = ( 12.40 ) mGy, DLP = ( 289.23 ) mGycm TECHNIQUE: Transaxial images were obtained post I.V. administration of IV 100mL Isovue-300, and oral contrast. Sagittal and coronal images were reconstructed. Individualized dose optimization techniques were used for this CT. COMPARISON: Comparison is made with prior study dated January 01, 2019. FINDINGS: The visualized lung bases are unremarkable. The visualized portions of the heart are within normal limits. Normal liver. Normal gallbladder and extrahepatic biliary system. Normal spleen. Normal pancreas. Normal bilateral adrenal glands. Normal right kidney. Normal left kidney. Normal visualized stomach. Normal small intestine. Normal colon. The appendix is visualized and appears normal. Normal abdominal aorta. Normal inferior vena cava. Normal retroperitoneum. Normal abdominal wall. There are mild degenerative changes of the visualized lumbar spine. CT/Abdomen WITH IV Contrast IMPRESSION: Stable examination. Electronically Signed: Jelani Miller, at 14:02 EDT , Service support ,
[2019-12-30 13:35] LABS: CREATININE FINGERSTICK < 0.6 mg/dL (0.70-1.30); EGFR FINGERSTICK > 60.0000 mL/min (>60)
[2019-12-31 15:45] LABS: AFP, Tumor Marker 2.3 ng/mL (0.0-8.3)
== END ==
PROVIDERS: PCP Internal Medicine; Referring Provider Internal Medicine; Visit Provider Internal Medicine
DX: K75.4 Autoimmune hepatitis (principal)
CPT/HCPCS: 36415; 74160; 80076; 82105; 85025; Q9967

== ENCOUNTER → 2020-03-25 10:12 | Outpatient (CLI) | payer MEDICARE, BC, SELFPAY ==
[2019-02-22 14:03] VITALS: BMI 22.8
[2020-03-25 10:31] LABS: Hematocrit 46.8 % (40-54); Hemoglobin 15.6 g/dL (13.0-16.5); Mean Corp Hgb Conc 33.3 g/dL (32-36); Mean Corpuscular Hgb 33.1 pg (27.0-32.0); Mean Corpuscular Volume 99.2 fL (80-94); Mean Platelet Vol. 10.2 fl (6.2-12.0); Platelet Count 149 K/mm3 (150-450); RBC Distribution Width CV 12.5 % (11.6-14.6); RBC Distribution Width SD 45.8 fl (35.1-43.9); Red Blood Count 4.72 M/mm3 (4.6-6.2); White Blood Count 5.3 K/mm3 (4.4-11.0)
[2020-03-25 10:47] LABS: AST(SGOT) 21 U/L (15-37); Alanine Aminotransfer ALT/SGPT 26 U/L (16-61); Albumin, Serum 4.2 g/dL (3.2-5.0); Alkaline Phosphatase 80 U/L (45-117); Bilirubin, Direct 0.27 mg/dL (0.00-0.30); Globulin 2.8 g/dL (2.2-4.2)
== END ==
PROVIDERS: PCP Internal Medicine; Referring Provider Internal Medicine; Visit Provider Internal Medicine
DX: K75.4 Autoimmune hepatitis (principal)
CPT/HCPCS: 80076; 85027

== ENCOUNTER → 2020-04-13 07:06 | Outpatient (CLI) | payer MEDICARE, BC, SELFPAY ==
[2019-02-22 14:03] VITALS: BMI 22.8
[2020-04-13 10:34] LABS: Anion Gap 4 (5-15); BUN 16 mg/dL (7-18); BUN/Creat Ratio 16.4 RATIO (10-20); Calcium,Total 9.1 mg/dL (8.5-10.1); Chloride 105 mmol/L (98-107); Creatinine, Serum 0.98 mg/dL (0.70-1.30); EST Glomerular Filtration Rate 82 mL/min (>60); Est Glom Filt Rate - Afr Amer 99 mL/min (>60); Glucose 93 mg/dL (74-106); PSA,Total - Annual Screen 1.11 ng/mL (0.00-4.00); Sodium Level 141 mmol/L (136-145)
[2020-04-16 13:40] LABS: Testosterone Free 4.9 pg/mL (6.6-18.1)
== END ==
PROVIDERS: PCP Internal Medicine; Referring Provider Internal Medicine; Visit Provider Internal Medicine
DX: M85.80 Other specified disorders of bone density and structure, unspecified site (principal); Z12.5 Encounter for screening for malignant neoplasm of prostate
CPT/HCPCS: 36415; 80048; 84153; 84402; G0103

== ENCOUNTER → 2020-04-16 07:49 | Outpatient (CLI) | payer MEDICARE, BC, SELFPAY ==
[2019-02-22 14:03] VITALS: BMI 22.8
--- NOTE | 2020-04-16 07:51 | CT_ITS ---
STUDY: CT CHEST WITHOUT CONTRAST REASON FOR EXAM: Male, 64 years old. LUNG NODULE follow-up x one year. No surgical or medical hx RADIATION DOSAGE (If Supplied By Facility): CTDIvol = ( 8.03 ) mGy, DLP = ( 286.84 ) mGycm TECHNIQUE: Transaxial imaging was performed without the administration of intravenous contrast material. Multiplanar coronal and sagittal images were reformatted. Individualized dose optimization techniques were used for this CT. COMPARISON: Comparison is made with prior study dated 03/12/2019. FINDINGS: 4 mm calcified granuloma in the anterior aspect of the right upper lobe. Stable 5 mm noncalcified nodule in the left upper lobe posteriorly abutting the oblique fissure. This is seen on axial image #72. There is a 1 cm x 8 mm linear density at the right lung base. This most likely represents scarring. There is no demonstrated pleural abnormality. Normal heart and pericardium. There are multiple small lymph nodes within the mediastinum, which are normal in size and morphology most compatible with reactive lymph hyperplasia. Normal hilar regions. Normal unenhanced pulmonary arteries. Normal aorta arch and descending thoracic aorta. There are mild degenerative changes of the thoracic spine. There is no demonstrated abnormality of the visualized upper abdomen. CT/Chest without Contrast IMPRESSION: Stable examination. Electronically Signed: Jelani Miller, at 8:35 EDT , Service support ,
--- NOTE | 2020-04-16 07:54 | US_ITS ---
STUDY: THYROID ULTRASOUND REASON FOR EXAM: Male, 64 years old. Nodule TECHNIQUE: Ultrasound evaluation of the thyroid was performed with real-time and static herrera-scale imaging. COMPARISON: None. FINDINGS: RIGHT LOBE: The right lobe of the thyroid gland is enlarged and measures 5.6 cm x 1.9 cm x 2.3 cm. There is a homogeneous echotexture. There is a 1.5 cm x 1.3 cm x 1.2 cm hypoechoic solid nodule in the midpole of the right lobe. Intranodular vascularity is seen. The right parathyroid gland was visualized. It measures 1.2 cm x 0.9 cm x 0.7 cm. LEFT LOBE: The left lobe of the thyroid gland measures 4.9 cm x 1.5 cm x 1.0 cm. There is a homogeneous echotexture. There is a 6 mm x 6 mm x 4 mm hypoechoic solid nodule in the lower posterior aspect of the left lobe. ISTHMUS: The isthmus measures 2.0 mm. The regional lymph nodes are normal. US/Thyroid IMPRESSION: The right lobe of the thyroid gland is enlarged. There is a 1.5 cm x 1.3 cm x 1.2 cm solid nodule in the midpole of the right lobe of the thyroid. 6 mm x 6 mm x 4 mm hypoechoic solid nodule in the lower posterior aspect of the left lobe. Electronically Signed: Jelani Miller, at 10:16 EDT , Service support ,
== END ==
PROVIDERS: PCP Internal Medicine; Referring Provider Internal Medicine; Visit Provider Internal Medicine
DX: R91.1 Solitary pulmonary nodule (principal); E04.1 Nontoxic single thyroid nodule
CPT/HCPCS: 71250; 76536

== ENCOUNTER → 2020-05-04 14:29 | Outpatient (CLI) | payer MEDICARE, BC, SELFPAY ==
[2020-05-04 13:15] VITALS: BMI 22.8
--- NOTE | 2020-05-04 13:15 | ASPS_PTH ---
PATIENT: BLAS MILES LOC: [facility] U#:[id number] AGE/SX: 69/M ROOM: RE05/04/[address]: Dr. Georges Groves MD : 1955 BED: DIS: SPEC #: [id number] RECD: 05/04/20 14:21 STATUS: GIANLUCA REQ #: [id number] PRINCE: 05/04/20 13:[address]: Georges Groves DEPT: CYTOLOGY RECD BY: Bryson Matamoros ENTERED: 05/05/20 08:01 SP TYPE: ASPIRATION OTHR DR: Dr. Maty Contreras, DO Tissues: Thyroid gland, NOS Procedures: Special Stain Group II Cytology Other HEADER OPERATION: Ultrasound-guided fine needle aspiration right thyroid PRE-OP DIAGNOSIS: Multinodular goiter E04.2 TISSUE SUBMITTED: Fine needle aspiration right thyroid slides x12 DIAGNOSIS CYTOLOGY Right thyroid nodule, ultrasound-guided FNA (smears): Consistent with benign follicular nodule. Adequate for evaluation. See comment. SJ:elmira 05/05/20 COMMENT Correlation with clinical, radiologic findings and appropriate follow up are necessary. CYTOLOGY STUDY Slides are reviewed. CYTOLOGY GROSS Received are 12 smears labeled with the patient's name and designated per the requisition as right thyroid. Submitted for staining. / elmira 05/04/20 TC:5 CPT: 76219
== END ==
PROVIDERS: PCP Internal Medicine; Referring Provider Surgery; Visit Provider Surgery
DX: E04.2 Nontoxic multinodular goiter (principal)
CPT/HCPCS: 88161; 88313

== ENCOUNTER → 2020-06-26 07:37 | Outpatient (CLI) | payer MEDICARE, BC, SELFPAY ==
[2019-02-22 14:03] VITALS: BMI 22.8
[2020-05-04 13:15] VITALS: BMI 22.8
--- NOTE | 2020-06-26 07:40 | US_ITS ---
STUDY: ABDOMINAL ULTRASOUND - RIGHT UPPER QUADRANT REASON FOR VISIT: Male, 64 years old AUTOIMMUNE HEPATITIS TECHNIQUE: Ultrasound evaluation of the right upper quadrant was performed with real-time and static herrera-scale imaging. TECHNICAL QUALITY: Adequate. COMPARISON: None. FINDINGS: Liver: The liver measures 15.2 cm. There is normal echogenicity of the liver. The bile ducts are within normal limits. There is hepatic color flow. The direction of portal flow is hepatopetal. There is no demonstrated mass lesion. Gallbladder: Normal distended gallbladder. The gallbladder wall measures 3 mm. There is a negative sonographic Quintero''s sign. There is no pericholecystic fluid. There are no gallstones. Possible gallbladder polyp. Common Bile Duct (C.B.D.): The common bile duct measures 4 mm. Pancreas: Normal size of the head, body and tail of the pancreas. There is normal echogenicity of the pancreas. There is no demonstrated pancreatic mass or cyst. Right Kidney: Normal size of the right kidney. The right kidney measures 10.4 x 5.4 x 5.0 cm. Normal renal cortex. The right cortex measures 1.4 cm. There is no demonstrated renal mass or cyst. There is no right hydronephrosis. US/Liver IMPRESSION: Possible gallbladder polyp. Electronically Signed: Jerson Foss DO at 22:53 EDT Tel [phone], Service support ,
[2020-06-26 09:32] LABS: Absolute Lymphocyte Count 1.15 X10^3/uL (0.83-4.51); Absolute Neutrophil Count 2.9 X10^3/uL (2.0-7.7); Basophil# 0.03 X10^3/uL; Basophil% 0.7 % (0-1); Eosinophil# 0.07 X10^3/uL; Eosinophils% 1.5 % (0-5); Hematocrit 47.2 % (40-54); Hemoglobin 15.5 g/dL (13.0-16.5); Lymphocyte # 1.15 X10^3/ul (4.0); Lymphocyte % 25.3 % (19-41); Mean Corp Hgb Conc 32.8 g/dL (32-36); Mean Corpuscular Hgb 32.4 pg (27.0-32.0); Mean Corpuscular Volume 98.5 fL (80-94); Mean Platelet Vol. 10.1 fl (6.2-12.0); Monocyte# 0.38 X10^3/uL; Monocyte% 8.4 % (0-10); NRBC Flagged by Analyzer 0 % (0-5); Neutrophil # 2.91 X10^3/uL (2.7-7.7); Neutrophil % 63.9 % (47-70); Platelet Count 143 K/mm3 (150-450); RBC Distribution Width CV 12.7 % (11.6-14.6); RBC Distribution Width SD 46.7 fl (35.1-43.9); Red Blood Count 4.79 M/mm3 (4.6-6.2); White Blood Count 4.6 K/mm3 (4.4-11.0)
[2020-06-26 10:02] LABS: AST(SGOT) 26 U/L (15-37); Alanine Aminotransfer ALT/SGPT 25 U/L (16-61); Albumin, Serum 3.9 g/dL (3.2-5.0); Alkaline Phosphatase 80 U/L (45-117); Bilirubin, Direct 0.26 mg/dL (0.00-0.30); Globulin 3.1 g/dL (2.2-4.2); PSA,Total- Diagnostic 0.31 ng/mL (0.0-4.0)
[2020-06-28 09:36] LABS: AFP, Tumor Marker 2.1 ng/mL (0.0-8.3); Testosterone Free 6.5 pg/mL (6.6-18.1)
== END ==
PROVIDERS: PCP Internal Medicine; Referring Provider Internal Medicine; Visit Provider Internal Medicine
DX: K75.4 Autoimmune hepatitis (principal); E04.1 Nontoxic single thyroid nodule; R91.1 Solitary pulmonary nodule; R97.20 Elevated prostate specific antigen [PSA]
CPT/HCPCS: 36415; 76705; 80076; 82105; 84153; 84402; 85025

== ENCOUNTER 2020-07-27 10:44 | Emergency (ER) | payer MEDICARE, BC, SELFPAY ==
[2020-05-04 13:15] VITALS: BMI 22.8
[2020-07-27] VITALS (8 sets, daily range): BP systolic 96–143; BP diastolic 69–90; PULSE 60–148; RESP 13–22; TEMP 36.2; O2SAT 96–100; BMI 25.1
--- NOTE | 2020-07-27 10:51 | EKG12_ITS ---
Test Reason : POSTCADIO Blood Pressure : / mmHG Vent. Rate : 066 BPM Atrial Rate : 066 BPM P-R Int : 160 ms QRS Dur : 076 ms QT Int : 374 ms P-R-T Axes : 035 -11 018 degrees QTc Int : 392 ms Somatic/Motion Artifact Normal sinus rhythm Confirmed by MANNY SALDAÑA, CHRISS ([id number]), acquisitions editor ALICIA SWIFT ([id number]) on 07/28/2020 1:04:41 PM Referred By: MARII Confirmed By:CHRISS BRYANT MD
--- NOTE | 2020-07-27 10:51 | NURSING ---
NO OLD EKGS
--- NOTE | 2020-07-27 11:00 | ED.VIS.GEN ---
History of Present Illness Chief Complaint: Palpitations Detail of Chief Complaint: Atrial fibrillation with RVR Informant: Patient Onset: Hours - Approximately 10 AM Context: Sudden Onset Timing: Continuous Quality: Palpitations Location: Chest Current Severity: Mild Maximum Severity: Moderate Worsened by: 70 Relieved by: Nothing Associated Symptoms: Mild discomfort in chest and shortness of breath Narrative: She is a healthy active 64-year-old male with history of intermittent atrial fibrillation. Is not had an episode in 8 years. His assistant director is Dr. King. Is present and aspirin. He was notified by his watch that he may be in atrial fibrillation. He did a tracing using his watch as well as a device that he has. Both tracings indicate that he is in A. fib with RVR. He has not anything to drink since early this morning and nothing to eat since last evening. He presently complains of the palpitations/fluttering of his chest. Otherwise he has no symptoms. He states he was recently diagnosed with a thyroid nodule which was determined to be benign. He had an ultrasound and biopsy. Prior similar symptoms: Yes Recent Illness/Hospitalization: Yes - Thyroid nodule - Past Medical History (1) Paroxysmal intermittent atrial fib Status: Acute (2) Thyroid nodule Status: Acute Past Medical History - Allergies and Home Meds Allergies/Adverse Reactions: Allergies No Known Allergies Allergy (Verified 07/27/20 10:45) Primary Care Physician: Edwin Villa MD [STAFF PHYSICIAN] - Maty Contreras DO [Primary Care Provider] - Prior records reviewed: Yes - A. fib and thyroid nodule Surgical History: - - Biopsy thyroid nodule Lives: Spouse/ Significant Other Smoking Status: Never smoker Alcohol: Rare Drugs: None Review of Systems General: Denies: Chills, Fever, Malaise, Subjective, Sweats ENT: Denies: Bilateral ear pain, Rhinorrhea Cardiovascular: Reports: Palpitations. Denies: Chest pain Respiratory: Reports: Dyspnea. Denies: Cough, Sputum, Dyspnea on exertion, Orthopnea, Paroxysmal nocturnal dyspnea Gastrointestinal: Denies: Abdominal pain, Nausea, Vomiting, Diarrhea, Melena, Hematochezia Musculoskeletal: Denies: Myalgias, Arthralgias, Swelling, Extremity Pain Skin: Denies: Rash Neurological: Denies: Weakness Hematologic: Denies: Easy bruising, Easy bleeding Physical Exam Vital Signs/Narrative: Vital Signs Temp Pulse Resp BP Pulse Ox 07/27/20 10:45 97.2 F L 76 17 143/90 H 100 Inital Vital Signs reviewed: Yes General: Well nourished, Well developed, No Acute Distress Head: Normocephalic, Atraumatic Eyes: Perrl, EOMI, Pale conjunctiva, Scleral icterus ENT: Moist mucous membranes, No rhinorrhea Neck: Supple, Nontender, No lymphadenopathy, No JVD, - - There is no JVD at 60 degrees. Cardiovascular: Irregular, Tachycardia Respiratory: No distress, CTA bilaterally, Chest nontender Abdomen: Soft, Nontender, Nondistended, Normal bowel sounds Back: Nontender, Normal Inspection Extremities: Nontender, Edema - 2 mm pitting Skin: Normal color, No rash, No Trauma. Negative for: Cyanosis, Diaphoresis, Jaundice Neurological: Alert, Oriented x3, Cranial nerves II-XII grossly intact, Normal Strength, Normal Sensation Psychological: Normal affect, Normal Mood Diagnostic/Tx/Re-eval Laboratory Results 07/27/20 07/27/20 11:15 11:15 WBC 4.7 RBC 4.83 Hgb 15.9 Hct 46.4 MCV 96.1 H MCH 32.9 H MCHC 34.3 RDW Std Deviation 44.8 H RDW Coeff of Damon 12.5 Plt Count 150 MPV 9.8 Sodium 143 Potassium 4.3 Chloride 108 H Carbon Dioxide 31.0 Anion Gap 4 L BUN 16 Creatinine 1.03 Estim Creat Clear Calc 69.17 Est GFR (MDRD) Af Amer 93 Est GFR (MDRD) Non-Af 77 BUN/Creatinine Ratio 15.5 Glucose 105 Calcium 9.3 CBC and basic metabolic panel are unremarkable. - EKG Initial EKG Interpretation: Atrial Fibrillation - Atrial fibrillation with a ventricular rate of 152. QRS duration 72 ms. QT duration 274 ms. There is an ossific ST-T wave changes most likely this is rate dependent. - Medical Decision Making Patient presents with atrial fib RVR. Since onset is known plan for cardioversion. Patient was informed that cardioversion is acceptable. He has no contraindication to sedation with propofol. Will obtain consent. Patient informed he had an episode in May, which he attributed to drinking since his daughter was moved from [place] to [place]. Since May he has had 2 additional episodes prior to today. He states they were very short duration. He states change in position terminated the atrial fibrillation. Today's episodes been going on for hours. Upon clarification onset was 0600. Procedure note: 1. Deep sedation with propofol 2. Cardioversion 100 J Case was discussed with Dr. Edwin Villa. He agrees with Eliquis. He requested that antiarrhythmics not be started. Patient was made aware of this. He is to call the office to be seen within the next week. Procedures Procedure(s): Patient was informed benefits of using propofol for deep sedation and cardioversion. He was given opportunity ask questions. None were asked. He denies allergy to egg products or soy products. He ate at 0645. Timeout was performed at 1149. Procedure was completed by 1155. Patient initially received 50 mg of propofol followed by 20 mg of propofol. He was on monitor. There was no desaturation. There was conversion from A. fib to sinus on the monitor after cardioversion with 100 J. Since patient had several episodes since May Dr. Villa was paged to discuss starting antiarrhythmic medication. He states 8 years ago he was treated with Cardizem. He received a dose of Eliquis and will be put on it short course of Eliquis to prevent embolic phenomenon due to stun effect. ED Disposition - Plan for ED Patient: Disposition: Home or Assisted Living Diagnosis: Atrial fibrillation with RVR Prescriptions: Apixaban [Eliquis] 5 mg PO BID #42 tab Transmission Status: Pending to [id number] Referrals: Maty Contreras DO [Primary Care Provider] - Edwin Villa MD [STAFF PHYSICIAN] - 5-7 Days Additional Instructions: Call Dr. Edwin Villa's office today to be seen within the next week.
[2020-07-27 11:27] LABS: Hematocrit 46.4 % (40-54); Hemoglobin 15.9 g/dL (13.0-16.5); Mean Corp Hgb Conc 34.3 g/dL (32-36); Mean Corpuscular Hgb 32.9 pg (27.0-32.0); Mean Corpuscular Volume 96.1 fL (80-94); Mean Platelet Vol. 9.8 fl (6.2-12.0); Platelet Count 150 K/mm3 (150-450); RBC Distribution Width CV 12.5 % (11.6-14.6); RBC Distribution Width SD 44.8 fl (35.1-43.9); Red Blood Count 4.83 M/mm3 (4.6-6.2); White Blood Count 4.7 K/mm3 (4.4-11.0)
[2020-07-27 11:40] LABS: Anion Gap 4 (5-15); BUN 16 mg/dL (7-18); BUN/Creat Ratio 15.5 RATIO (10-20); Calcium,Total 9.3 mg/dL (8.5-10.1); Chloride 108 mmol/L (98-107); Creatinine, Serum 1.03 mg/dL (0.70-1.30); EST Glomerular Filtration Rate 77 mL/min (>60); Est Glom Filt Rate - Afr Amer 93 mL/min (>60); Estimated Creatinine Clearance 69.17 ml/min; Glucose 105 mg/dL (74-106); Potassium 4.3 mmol/L (3.5-5.1); Sodium Level 143 mmol/L (136-145)
[2020-07-27] MEDS: Propofol 200 MG/20 ML Vial IV BOLUS (11:51)
--- NOTE | 2020-07-27 11:54 | EKG12_ITS ---
Test Reason : PALPS Blood Pressure : / mmHG Vent. Rate : 152 BPM Atrial Rate : 153 BPM P-R Int : 000 ms QRS Dur : 072 ms QT Int : 274 ms P-R-T Axes : 000 006 038 degrees QTc Int : 435 ms Atrial fibrillation with rapid ventricular response Nonspecific ST and T wave abnormality Abnormal ECG Confirmed by MANNY SALDAÑA, CHRISS ([id number]), business editor URBAN RAMSEY ([id number]) on 07/28/2020 1:29:44 PM Referred By: MARII Confirmed By:CHRISS BRYANT MD
[2020-07-27] MEDS: APIXABAN 5 MG TABLET PO (12:35)
== END 2020-07-27 12:43 | disposition home or self-care (01) ==
PROVIDERS: Emergency Provider Emergency Medicine; PCP Internal Medicine
DX: I48.91 Unspecified atrial fibrillation (principal); E04.1 Nontoxic single thyroid nodule
CPT/HCPCS: 80048; 85027; 92960; 93005; 99284; J7030

== ENCOUNTER → 2020-08-11 07:53 | Outpatient (CLI) | payer MEDICARE, BC, SELFPAY ==
[2020-07-29 11:54] VITALS: BMI 24.3
--- NOTE | 2020-08-11 07:54 | ECHOD_ITS ---
Reason For Study: A. fib Procedure This was a 2D Doppler, Color Flow transthoracic echocardiogram. Exam performed in department. Left Ventricle Normal LV size. Mild concentric left ventricular hypertrophy. Left ventricular systolic function is normal. The estimated ejection fraction is 65 %. Stage 1 diastolic dysfunction. No regional wall motion abnormalities noted. Right Ventricle Normal RV size. Normal systolic function. Atria Normal left atrium. Normal right atrium. Mitral Valve Normal mitral valve. Mild (1+) eccentric mitral valve insufficiency. Tricuspid Valve Normal tricuspid valve. Aortic Valve Normal aortic valve. Trisinus/trileaflet aortic valve. Pulmonic Valve Normal pulmonic valve. Great Vessels Normal aortic root. The pulmonary artery is normal size. Normal inferior vena cava. Pericardium/Pleural No pericardial effusion. MMode/2D Measurements & Calculations LVIDd: 4.7 cm IVSd: 1.2 cm Ao root diam: 4.0 cm LVIDs: 2.9 cm LVPWd: 1.3 cm RVDd: 3.4 cm FS: 39.8 % LAV(MOD-bp): 60.0 ml EDV(MOD-sp4): 88.1 ml EDV(MOD-sp2): 86.9 ml LAV(MOD-bp) Indexed: 32.3 ml/m2 ESV(MOD-sp4): 35.1 ml EF(MOD-sp2): 62.5 % LAV(MOD-sp2): 74.1 ml EF(MOD-sp4): 60.2 % LAV(MOD-sp4): 39.0 ml SV(MOD-sp4): 53.0 ml SV(MOD-sp2): 54.3 ml LA A4 area: 15.3 cm2 LA dimension(2D): 3.7 cm RA A4 area: 16.1 cm2 Doppler Measurements & Calculations MV E max sergo: 67.3 cm/sec Lat Peak E' Sergo: 10.0 cm/sec Med Peak E' Sergo: 8.9 cm/sec MV A max sergo: 71.0 cm/sec E/E' lat: 6.7 E/E' med: 7.6 MV E/A: 0.95 Ao V2 max: 130.4 cm/sec LV V1 max: 97.3 cm/sec PA V2 max: 85.2 cm/sec Ao max P.8 mmHg LV V1 max P.8 mmHg Interpretation Summary Normal LV size. Mild concentric left ventricular hypertrophy. Left ventricular systolic function is normal. The estimated ejection fraction is 65 %. Stage 1 diastolic dysfunction. Mild (1+) eccentric mitral valve insufficiency. Ordering Physician: Edwin Villa Referring Physician: Maty Contreras D.O. Performed By: Leora Escalera RDCS
== END ==
PROVIDERS: PCP Internal Medicine; Referring Provider Internal Medicine Cardiovascular Disease; Visit Provider Internal Medicine Cardiovascular Disease
DX: I48.0 Paroxysmal atrial fibrillation (principal)
CPT/HCPCS: 93306

== ENCOUNTER → 2020-09-01 07:21 | Outpatient (CLI) | payer MEDICARE, BC, SELFPAY ==
[2020-07-29 11:54] VITALS: BMI 24.3
[2020-09-01 09:50] LABS: Absolute Lymphocyte Count 1.53 X10^3/uL (0.83-4.51); Basophil# 0.03 X10^3/uL; Basophil% 0.6 % (0-1); Eosinophil# 0.13 X10^3/uL; Eosinophils% 2.6 % (0-5); Hematocrit 42.9 % (40-54); Hemoglobin 15.1 g/dL (13.0-16.5); Lymphocyte # 1.53 X10^3/ul (4.0); Lymphocyte % 30.2 % (19-41); Mean Corp Hgb Conc 35.2 g/dL (32-36); Mean Corpuscular Hgb 33.7 pg (27.0-32.0); Mean Corpuscular Volume 95.8 fL (80-94); Mean Platelet Vol. 9.9 fl (6.2-12.0); Monocyte# 0.39 X10^3/uL; Monocyte% 7.7 % (0-10); NRBC Flagged by Analyzer 0 % (0-5); Neutrophil # 2.98 X10^3/uL (2.7-7.7); Neutrophil % 58.7 % (47-70); Platelet Count 134 K/mm3 (150-450); RBC Distribution Width CV 12.5 % (11.6-14.6); RBC Distribution Width SD 44.5 fl (35.1-43.9); Red Blood Count 4.48 M/mm3 (4.6-6.2); White Blood Count 5.1 K/mm3 (4.4-11.0)
[2020-09-01 10:02] LABS: Vitamin B12 579 pg/mL (211-911)
[2020-09-01 10:04] LABS: AST(SGOT) 18 U/L (15-37); Alanine Aminotransfer ALT/SGPT 23 U/L (16-61); Albumin, Serum 3.8 g/dL (3.2-5.0); Alkaline Phosphatase 85 U/L (45-117); Bilirubin, Direct 0.16 mg/dL (0.00-0.30); Globulin 2.9 g/dL (2.2-4.2); Protein, Total 6.7 g/dL (6.4-8.2)
[2020-09-02 16:18] LABS: Anti-Smooth Muscle ABS 9 Units (0-19)
[2020-09-02 16:22] LABS: Anti-Mitochondrial AB <20.0 Units (0.0-20.0); Anti-Nuclear Antibody Test Negative (.)
== END ==
PROVIDERS: PCP Internal Medicine
DX: K76.89 Other specified diseases of liver (principal)
CPT/HCPCS: 36415; 80076; 82607; 83516; 85025; 86038

== ENCOUNTER → 2020-10-01 10:04 | Outpatient (CLI) | payer MEDICARE, BC, SELFPAY ==
[2020-07-29 11:54] VITALS: BMI 24.3
[2020-10-01 12:18] LABS: Absolute Lymphocyte Count 1.26 X10^3/uL (0.83-4.51); Absolute Neutrophil Count 3.2 X10^3/uL (2.0-7.7); Basophil# 0.03 X10^3/uL; Basophil% 0.6 % (0-1); Eosinophil# 0.08 X10^3/uL; Eosinophils% 1.6 % (0-5); Hematocrit 46.8 % (40-54); Hemoglobin 15.6 g/dL (13.0-16.5); Lymphocyte # 1.26 X10^3/ul (4.0); Lymphocyte % 25.3 % (19-41); Mean Corp Hgb Conc 33.3 g/dL (32-36); Mean Corpuscular Hgb 32.7 pg (27.0-32.0); Mean Corpuscular Volume 98.1 fL (80-94); Mean Platelet Vol. 10.2 fl (6.2-12.0); Monocyte# 0.45 X10^3/uL; NRBC Flagged by Analyzer 0 % (0-5); Neutrophil # 3.15 X10^3/uL (2.7-7.7); Neutrophil % 63.3 % (47-70); Platelet Count 152 K/mm3 (150-450); RBC Distribution Width CV 12.6 % (11.6-14.6); RBC Distribution Width SD 45.2 fl (35.1-43.9); Red Blood Count 4.77 M/mm3 (4.6-6.2)
[2020-10-01 12:44] LABS: AST(SGOT) 17 U/L (15-37); Alanine Aminotransfer ALT/SGPT 22 U/L (16-61); Albumin, Serum 4.2 g/dL (3.2-5.0); Alkaline Phosphatase 72 U/L (45-117); Bilirubin, Direct 0.25 mg/dL (0.00-0.30); Protein, Total 7.2 g/dL (6.4-8.2)
[2020-10-04 07:30] LABS: Testosterone Free 5.2 pg/mL (6.6-18.1)
== END ==
PROVIDERS: PCP Internal Medicine
DX: R79.89 Other specified abnormal findings of blood chemistry (principal); K76.89 Other specified diseases of liver
CPT/HCPCS: 36415; 80076; 84402; 85025

== ENCOUNTER → 2020-10-08 07:06 | Outpatient (CLI) | payer MEDICARE, BC, SELFPAY ==
[2020-07-29 11:54] VITALS: BMI 24.3
[2020-10-11 07:12] LABS: Testosterone Free 5.3 pg/mL (6.6-18.1)
== END ==
PROVIDERS: PCP Internal Medicine; Referring Provider Internal Medicine; Visit Provider Internal Medicine
DX: R79.89 Other specified abnormal findings of blood chemistry (principal)
CPT/HCPCS: 36415; 84402

== ENCOUNTER 2020-10-16 08:30 | Outpatient (RCR) | payer MEDICARE, BC, SELFPAY ==
[2020-07-29 11:54] VITALS: BMI 24.3
--- NOTE | 2020-10-14 09:02 | HP.PTEVAL_ITS ---
Patient's Visit Information BLAS MILES is a 65 year old M referred to Physical Therapy by Dr. Maty Contreras DO with a diagnosis of Lumbar radiculopathy. Date of Evaluation: 10/14/20 Physical Therapist: Akil Vaughn, PT, Cert MDT, OCS - Visit Plan Frequency: 1-2x /Week Duration: 4 Weeks Plan: 1-2xs/week for 4 weeks per POC. PT Interventions: Hip strengthening, LE strengthening, core stabilization, functional mobility. - Subjective Patient is a 65 year old male presenting to the clinic with L groin pain. States last fall the back pain started to get worse on the left side of the low back and travels into the groin. Patient reports that he walks at least 3 miles/day. Denies back pain with walking. Aggravating factors: pulling knees to chest, sitting for more than 1 hour. Ice post-exercise for symptom management. Denies numbness and tingling into L LE. Hx of ACL repair on L knee. Hx of Afib and autoimmune hepatitis. Vocation: Retired. Social: - Pain Left Back Pain Intensity (Out of 10): 2 Pain Intensity Range: 10 - Objective Sensation: Intact to light touch B LE. LE MMT: R hip flexion 5/5, quad 5/5, ham 5/5, DF 5/5, PF 5/5, hip IR 5/5, ER 5/5, abd 5/5. L hip flexion 5/5, quad 5/5, ham 5/5, DF 5/5, PF 5/5, hip IR 5/5, ER 5/5, abd 4+/5. Lumbar AROM: flexion WFL, ext WFL, R sidebend WFL, L sidebend WFL, R rotation WFL, L rotation WFL. L Hip ROM: 130 degrees. Hamstrings 90/90: No limitation - Special Tests L/S Left Straight Leg Raise: Negative L/S Right Straight Leg Raise: Negative Lumbar Standing: Flexion - Mechanical Response: No effect Lumbar Standing: Flexion - Symptoms During Testing: No effect Lumbar Standing: Flexion - Symptoms After Testing: No effect Lumbar Standing: Extension - Mechanical Response: No effect Lumbar Standing: Extension - Symptoms During Testing: No effect Lumbar Standing: Extension - Symptoms After Testing: No effect Lumbar Standing: Right Side Glides - Mechanical Response: No effect Lumbar Standing: Right Side [place] - Symptoms During Testing: No effect Lumbar Standing: Right Side [place] - Symptoms After Testing: No effect Lumbar Standing: Left Side [place] - Mechanical Response: No effect Lumbar Standing: Left Side [place] - Symptoms During Testing: No effect Lumbar Standing: Left Side [place] - Symptoms After Testing: No effect R Hip Scour: Negative R Hip JACINTO - Intraarticular Pathology: Negative L Hip Scour: Positive L Hip JAC[place]TO - Intraarticular Pathology: Negative - Goals Goal 1:: Patient will demonstrate 5/5 L hip ABD for improved functional strength. Goal Time Frame: 2-4 Weeks Goal 2:: Patient will improve Oswestry (back) score by 3 points for improved QOL. Goal Time Frame: 2-4 Weeks Goal 3:: Patient will demonstrate hip flexion of 135 greater or > with no reports of groin pain for improved functional mobility. Goal Time Frame: 2-4 Weeks Goal 4:: Patient will report return to walking 4-5 miles/day with no pain for improved exercise tolerance and QOL. Goal Time Frame: 2-4 Weeks - Rehabilitation Potential Physical Therapy Diagnosis: Patient is a 65 year old male presenting to the clinic with L groin pain produced by hip flexion. Demonstrates good LE strength and mobility. Rehabilitation Potential: Good - Anticipated Interventions Patient/Client Instruction: Educate patient on: Condition, Plan of Care For the Purpose of:: To decrease pain, To increase ROM, To improve muscle performance and motor function, To increase tolerance to activity/condition/position, To improve ability of physical actions for home/community/work/leisure, To increase flexibility/ROM, To improve endurance, To improve health and function, To improve self management Therapeutic Exercise to Include: Strength training, Endurance training, Body mechanics, Postural training, Gait and locomotor training Comment: Hip strengthening For the Purpose of:: To decrease pain, To increase ROM, To improve muscle performance and motor function, To increase tolerance to activity/condition/position, To improve ability of physical actions for home/community/work/leisure, To improve endurance, To improve health and function, To improve self management IF ES: Yes Other electric stimulation: Yes Cryotherapy (ice pack, ice massage): Yes Thermo therapy (hot pack): Yes Ultrasound (thermal/non thermal): Yes For the Purpose of:: To decrease pain, To increase ROM, To improve muscle performance and motor function, To increase tolerance to activity/condition/position, To improve ability of physical actions for home/community/work/leisure, To improve endurance, To improve health and function, To improve self management Thank you for the opportunity to evaluate your patient. For Medicare and Medicare HMO plans, please review the plan of care and approve it. It will need to be FAXED BACK to us at [phone] for Medicare purposes. For Medicare only, by signing this I certify the plan of care. Please let me know if there are questions or concerns regarding this plan of care. Physician Signature: Date:
--- NOTE | 2021-04-20 13:13 | HP.PT.NRP ---
BLAS MILES was seen in my office for initial evaluation on 10/14/20. The following Plan of Care was established for this patient: Initial Frequency: 1-2x /Week Initial Duration: 4 Weeks Patient/Client Instruction: Educate patient on: Condition, Plan of Care For the Purpose of:: To decrease pain, To increase ROM, To improve muscle performance and motor function, To increase tolerance to activity/condition/position, To improve ability of physical actions for home/community/work/leisure, To increase flexibility/ROM, To improve endurance, To improve health and function, To improve self management Therapeutic Exercise to Include: Strength training, Endurance training, Body mechanics, Postural training, Gait and locomotor training For the Purpose of:: To decrease pain, To increase ROM, To improve muscle performance and motor function, To increase tolerance to activity/condition/position, To improve ability of physical actions for home/community/work/leisure, To improve endurance, To improve health and function, To improve self management IF ES: Yes Other electric stimulation: Yes Cryotherapy (ice pack, ice massage): Yes Thermo therapy (hot pack): Yes Ultrasound (thermal/non thermal): Yes For the Purpose of:: To decrease pain, To increase ROM, To improve muscle performance and motor function, To increase tolerance to activity/condition/position, To improve ability of physical actions for home/community/work/leisure, To improve endurance, To improve health and function, To improve self management This patient was last seen in our office . Pertinent comments regarding their Physical therapy will appear below: Patient seen for PT for lumbar radiculopathy for postural ex's ,DLS and modlties At this point I will be discontinuing this patient from physical therapy. I would be happy to see this patient again in the future if found appropriate by the physician. Thank you! Akil Vaughn, PT, Cert MDT, OCS Balance/Gait/Functional tests - Balance/Special Test Scores Oswestry Low Back Score: 0
== END 2020-10-16 19:00 | disposition home or self-care (01) ==
LOC: PT 08:30
PROVIDERS: PCP Internal Medicine; Referring Provider Internal Medicine; Visit Provider Internal Medicine
DX: M54.16 Radiculopathy, lumbar region (principal)
CPT/HCPCS: 97110; 97161

== ENCOUNTER 2020-11-06 09:23 | Outpatient (RCR) | payer MEDICARE, BC, SELFPAY ==
[2020-07-29 11:54] VITALS: BMI 24.3
[2020-11-06 12:47] LABS: Absolute Lymphocyte Count 1.35 X10^3/uL (0.83-4.51); Absolute Neutrophil Count 3.8 X10^3/uL (2.0-7.7); Basophil# 0.04 X10^3/uL; Basophil% 0.7 % (0-1); Eosinophil# 0.07 X10^3/uL; Eosinophils% 1.2 % (0-5); Hematocrit 45.2 % (40-54); Hemoglobin 14.7 g/dL (13.0-16.5); Lymphocyte # 1.35 X10^3/ul (4.0); Lymphocyte % 23.6 % (19-41); Mean Corp Hgb Conc 32.5 g/dL (32-36); Mean Corpuscular Hgb 32.3 pg (27.0-32.0); Mean Corpuscular Volume 99.3 fL (80-94); Mean Platelet Vol. 9.7 fl (6.2-12.0); Monocyte% 8.7 % (0-10); NRBC Flagged by Analyzer 0 % (0-5); Neutrophil # 3.75 X10^3/uL (2.7-7.7); Neutrophil % 65.6 % (47-70); Platelet Count 152 K/mm3 (150-450); RBC Distribution Width CV 12.9 % (11.6-14.6); RBC Distribution Width SD 47.7 fl (35.1-43.9); Red Blood Count 4.55 M/mm3 (4.6-6.2); White Blood Count 5.7 K/mm3 (4.4-11.0)
[2020-11-06 13:02] LABS: AST(SGOT) 17 U/L (15-37); Alanine Aminotransfer ALT/SGPT 25 U/L (16-61); Albumin, Serum 3.7 g/dL (3.2-5.0); Alkaline Phosphatase 83 U/L (45-117); Bilirubin, Direct 0.14 mg/dL (0.00-0.30); Protein, Total 6.7 g/dL (6.4-8.2)
== END 2020-11-06 18:00 | disposition home or self-care (01) ==
LOC: MTLAB 09:23
PROVIDERS: PCP Internal Medicine
DX: K76.89 Other specified diseases of liver (principal)
CPT/HCPCS: 36415; 80076; 85025

== ENCOUNTER 2020-12-02 07:12 | Outpatient (RCR) | payer MEDICARE, BC, SELFPAY ==
[2020-07-29 11:54] VITALS: BMI 24.3
[2020-12-02 10:27] LABS: Absolute Lymphocyte Count 1.49 X10^3/uL (0.83-4.51); Absolute Neutrophil Count 2.8 X10^3/uL (2.0-7.7); Basophil# 0.02 X10^3/uL; Basophil% 0.4 % (0-1); Hematocrit 44.8 % (40-54); Hemoglobin 15.2 g/dL (13.0-16.5); Lymphocyte # 1.49 X10^3/ul (4.0); Lymphocyte % 30.4 % (19-41); Mean Corp Hgb Conc 33.9 g/dL (32-36); Mean Corpuscular Hgb 32.8 pg (27.0-32.0); Mean Corpuscular Volume 96.8 fL (80-94); Monocyte# 0.45 X10^3/uL; Monocyte% 9.2 % (0-10); NRBC Flagged by Analyzer 0 % (0-5); Neutrophil # 2.83 X10^3/uL (2.7-7.7); Neutrophil % 57.8 % (47-70); Platelet Count 148 K/mm3 (150-450); RBC Distribution Width CV 12.3 % (11.6-14.6); Red Blood Count 4.63 M/mm3 (4.6-6.2); White Blood Count 4.9 K/mm3 (4.4-11.0)
[2020-12-02 10:59] LABS: AST(SGOT) 20 U/L (15-37); Alanine Aminotransfer ALT/SGPT 27 U/L (16-61); Albumin, Serum 3.9 g/dL (3.2-5.0); Alkaline Phosphatase 80 U/L (45-117); Bilirubin, Direct 0.15 mg/dL (0.00-0.30); Globulin 2.9 g/dL (2.2-4.2); Protein, Total 6.8 g/dL (6.4-8.2)
== END 2020-12-02 18:00 | disposition home or self-care (01) ==
LOC: MTLAB 07:12
PROVIDERS: PCP Internal Medicine
DX: K76.89 Other specified diseases of liver (principal)
CPT/HCPCS: 36415; 80076; 85025

== ENCOUNTER → 2020-12-30 07:50 | Outpatient (CLI) | payer MEDICARE, BC, SELFPAY ==
[2020-07-29 11:54] VITALS: BMI 24.3
--- NOTE | 2020-12-30 07:53 | US_ITS ---
STUDY: ABDOMINAL ULTRASOUND - RIGHT UPPER QUADRANT REASON FOR VISIT: Male, 65 years old SCREEN HCC autoimmune liver disease. TECHNIQUE: Ultrasound evaluation of the right upper quadrant was performed with real-time and static herrera-scale imaging. TECHNICAL QUALITY: Adequate. COMPARISON: Comparison is made with prior examination dated 06/26/2020. FINDINGS: Liver: The liver measures 14.9 cm. There is increased echogenicity consistent with a mild degree of fatty infiltration. The bile ducts are within normal limits. There is hepatic color flow. The direction of portal flow is hepatopetal. There is no demonstrated mass lesion. Gallbladder: Normal distended gallbladder. The gallbladder wall measures 2.9 mm. There is a negative sonographic Quintero''s sign. There is no pericholecystic fluid. There are no gallstones. There is a 3 mm gallbladder polyp. Common Bile Duct (C.B.D.): The common bile duct measures 3.5 mm. Pancreas: Normal size of the head, body and tail of the pancreas. There is normal echogenicity of the pancreas. There is no demonstrated pancreatic mass or cyst. Right Kidney: Normal size of the right kidney. The right kidney measures 10.4 cm x 5.2 cm x 5.3 cm. Normal renal cortex. The right cortex measures 1.7 cm. There is no demonstrated renal mass or cyst. There is no right hydronephrosis. US/Abdomen Limited IMPRESSION: Mild degree of fatty infiltration of the liver. 3 mm gallbladder polyp. Electronically Signed: Jelani Miller MD at 12:52 EDT , Service support ,
== END ==
PROVIDERS: PCP Internal Medicine
DX: K76.89 Other specified diseases of liver (principal)
CPT/HCPCS: 76705

== ENCOUNTER 2020-12-30 08:38 | Outpatient (RCR) | payer MEDICARE, BC, SELFPAY ==
[2020-07-29 11:54] VITALS: BMI 24.3
[2020-12-30 10:12] LABS: Absolute Lymphocyte Count 1.37 X10^3/uL (0.83-4.51); Absolute Neutrophil Count 2.6 X10^3/uL (2.0-7.7); Basophil# 0.04 X10^3/uL; Basophil% 0.9 % (0-1); Eosinophil# 0.07 X10^3/uL; Eosinophils% 1.6 % (0-5); Hematocrit 43.8 % (40-54); Hemoglobin 14.7 g/dL (13.0-16.5); Lymphocyte # 1.37 X10^3/ul (0.83-4.51); Lymphocyte % 30.6 % (19-41); Mean Corp Hgb Conc 33.6 g/dL (32-36); Mean Corpuscular Hgb 32.9 pg (27.0-32.0); Mean Platelet Vol. 9.8 fl (6.2-12.0); Monocyte# 0.42 X10^3/uL; Monocyte% 9.4 % (0-10); NRBC Flagged by Analyzer 0 % (0-5); Neutrophil # 2.56 X10^3/uL (2.7-7.7); Neutrophil % 57.3 % (47-70); Platelet Count 141 K/mm3 (150-450); RBC Distribution Width CV 12.7 % (11.6-14.6); RBC Distribution Width SD 45.4 fl (35.1-43.9); Red Blood Count 4.47 M/mm3 (4.6-6.2); White Blood Count 4.5 K/mm3 (4.4-11.0)
[2020-12-30 10:47] LABS: AST(SGOT) 20 U/L (15-37); Alanine Aminotransfer ALT/SGPT 25 U/L (16-61); Albumin, Serum 3.8 g/dL (3.2-5.0); Alkaline Phosphatase 75 U/L (45-117); Bilirubin, Direct 0.18 mg/dL (0.00-0.30); Globulin 2.9 g/dL (2.2-4.2); Protein, Total 6.7 g/dL (6.4-8.2)
== END 2020-12-30 18:00 | disposition home or self-care (01) ==
LOC: MTLAB 08:38
PROVIDERS: PCP Internal Medicine
DX: K76.89 Other specified diseases of liver (principal); K75.4 Autoimmune hepatitis
CPT/HCPCS: 36415; 80076; 82105; 85025

== ENCOUNTER → 2021-02-10 10:41 | Outpatient (CLI) | payer MEDICARE, BC, SELFPAY ==
[2020-07-29 11:54] VITALS: BMI 24.3
--- NOTE | 2021-02-10 10:44 | RAD_ITS ---
STUDY: X-RAY - LUMBAR SPINE REASON FOR EXAM: Male, 65 years old. LUMBAR RADICULOPATHY TECHNIQUE: 5 view(s) of the lumbar spine were obtained. COMPARISON: None FINDINGS: Normal lumbar lordosis. Mild dextroscoliosis centered at L3. 5 mm of anterolisthesis of L4 on L5. Normal vertebral bodies and endplates. Focal disc space narrowing and osteophyte formation at L3/L4 consistent with degenerative disc disease. The soft tissue structures are unremarkable. RAD/L/S Spine Min 4 Views IMPRESSION: Mild dextroscoliosis with degenerative disc disease with 5 mm of anterolisthesis of L4 on L5 to Electronically Signed: Dewayne Mirza MD at 11:07 EDT Tel , Service support ,
--- NOTE | 2021-02-10 10:45 | RAD_ITS ---
STUDY: X-RAY - PELVIS AND BILATERAL HIPS REASON FOR EXAM: Male, 65 years old. LUMBAR RADICULOPATHY TECHNIQUE: AP view of the pelvis.? 2 views of the right hip, and 2 views of the left hip were obtained. COMPARISON: None. FINDINGS: There is a non-specific bowel gas pattern. Normal visualized soft tissue structures. Normal bilateral iliac wings, sacroiliac joints and visualized sacrum. Normal bilateral superior and inferior pubic rami. Normal pubic symphysis. Normal bilateral ischial tuberosities. Normal visualized right femoral head. Normal right acetabulum. Normal right hip joint. Normal visualized left femoral head. Normal left acetabulum. Normal left hip joint. RAD/Hips B/L min 2 views w/ Pelvis IMPRESSION: Normal x-ray examination of the pelvis and bilateral hips. Electronically Signed: Dewayne Mirza MD at 11:09 EDT Tel , Service support ,
== END ==
PROVIDERS: PCP Internal Medicine; Referring Provider Internal Medicine; Visit Provider Internal Medicine
DX: M54.16 Radiculopathy, lumbar region (principal)
CPT/HCPCS: 72110; 73521

== ENCOUNTER → 2021-02-20 08:05 | Outpatient (CLI) | payer MEDICARE, BC, SELFPAY ==
[2020-07-29 11:54] VITALS: BMI 24.3
--- NOTE | 2021-02-20 08:12 | MRI_ITS ---
STUDY: MRI LUMBAR SPINE WITHOUT CONTRAST REASON FOR EXAM: Male, 65 years old. LUMBAR RADICULOPATHY low back pain and right leg pain for 4 months TECHNIQUE: Standardized fat and water weighted pulse sequences were obtained in the sagittal and axial planes. COMPARISON: Plain films 10 February 2021, CT 30 December 2019 FINDINGS: T12-L1: Normal endplates. Normal disc height, hydration and morphology. Normal bilateral facet joints. Normal central canal and bilateral lateral recesses. Normal bilateral intervertebral neural foramina. Mild rightward lumbar lordosis. There is no substantial scoliosis. There is grade 1 degenerative anterolisthesis of L4 on L5, 2 mm with remainder of the spine fully aligned. Normal conus medullaris that terminates at the L1-L2 L1-2: Normal endplates. Normal disc height, hydration and morphology. Normal bilateral facet joints. Normal central canal and bilateral lateral recesses. Normal bilateral intervertebral neural foramina. L2-3: Normal endplates. Normal disc height, hydration and morphology. Normal bilateral facet joints. Normal central canal and bilateral lateral recesses. Normal bilateral intervertebral neural foramina. L3-4: Degenerated endplates. There is a benign hemangioma in L3. Decreased disc height, hydration and degenerative morphology. Degenerated bilateral facet joints. Normal central canal and bilateral lateral recesses. There is mild to moderate bilateral renal stenosis. L4-5: Normal endplates. Normal disc height, decreased hydration and degenerative morphology. Degenerated bilateral facet joints. There is mild canal stenosis and without functional thecal sac compression. Lateral recesses are patent. There is mild bilateral foraminal stenosis. L5-S1: Mildly degenerated endplates. Mildly decreased disc height, hydration and mildly degenerated morphology. Normal bilateral facet joints. Normal central canal and bilateral lateral recesses. Normal bilateral intervertebral neural foramina. Normal visualized sacral ala. Normal visualized paraspinous soft tissue structures. Appearance is similar to prior. MRI/Spine Lumbar (Routine) IMPRESSION: 1. Patent thecal sac, no neural compression. 2. Mild degenerative changes. Electronically Signed: Juan Jose Schilling MD at 21:06 EDT Tel , Service support ,
== END ==
PROVIDERS: PCP Internal Medicine; Referring Provider Internal Medicine; Visit Provider Internal Medicine
DX: M54.16 Radiculopathy, lumbar region (principal)
CPT/HCPCS: 72148

== ENCOUNTER 2021-02-23 08:22 | Outpatient (RCR) | payer MEDICARE, BC, SELFPAY ==
[2020-07-29 11:54] VITALS: BMI 24.3
[2021-02-23 10:22] LABS: Absolute Lymphocyte Count 1.36 X10^3/uL (0.83-4.51); Absolute Neutrophil Count 2.7 X10^3/uL (2.0-7.7); Basophil# 0.02 X10^3/uL; Basophil% 0.4 % (0-1); Eosinophil# 0.08 X10^3/uL; Eosinophils% 1.7 % (0-5); Hematocrit 44.8 % (40-54); Hemoglobin 15.1 g/dL (13.0-16.5); Lymphocyte # 1.36 X10^3/ul (0.83-4.51); Lymphocyte % 29.6 % (19-41); Mean Corp Hgb Conc 33.7 g/dL (32-36); Mean Corpuscular Hgb 32.8 pg (27.0-32.0); Mean Corpuscular Volume 97.2 fL (80-94); Mean Platelet Vol. 9.7 fl (6.2-12.0); Monocyte# 0.43 X10^3/uL; Monocyte% 9.4 % (0-10); NRBC Flagged by Analyzer 0 % (0-5); Neutrophil # 2.68 X10^3/uL (2.7-7.7); Neutrophil % 58.5 % (47-70); Platelet Count 170 K/mm3 (150-450); RBC Distribution Width CV 12.6 % (11.6-14.6); RBC Distribution Width SD 45.2 fl (35.1-43.9); Red Blood Count 4.61 M/mm3 (4.6-6.2); White Blood Count 4.6 K/mm3 (4.4-11.0)
[2021-02-23 10:55] LABS: AST(SGOT) 24 U/L (15-37); Alanine Aminotransfer ALT/SGPT 22 U/L (16-61); Albumin, Serum 3.8 g/dL (3.2-5.0); Alkaline Phosphatase 76 U/L (45-117); Bilirubin, Direct 0.22 mg/dL (0.00-0.30); Globulin 2.9 g/dL (2.2-4.2); Protein, Total 6.7 g/dL (6.4-8.2)
== END 2021-02-23 18:00 | disposition home or self-care (01) ==
LOC: MTLAB 08:22
PROVIDERS: PCP Internal Medicine
DX: K76.89 Other specified diseases of liver (principal)
CPT/HCPCS: 36415; 80076; 85025

== ENCOUNTER 2021-04-01 07:15 | Outpatient (RCR) | payer MEDICARE, BC, SELFPAY ==
[2021-03-10 11:29] VITALS: BMI 24.5
[2021-04-01 10:10] LABS: Absolute Lymphocyte Count 1.73 X10^3/uL (0.83-4.51); Absolute Neutrophil Count 3.4 X10^3/uL (2.0-7.7); Basophil# 0.04 X10^3/uL; Basophil% 0.7 % (0-1); Eosinophils% 1.7 % (0-5); Hemoglobin 15.4 g/dL (13.0-16.5); Lymphocyte # 1.73 X10^3/ul (0.83-4.51); Lymphocyte % 29.7 % (19-41); Mean Corp Hgb Conc 34.2 g/dL (32-36); Mean Corpuscular Hgb 33.2 pg (27.0-32.0); Mean Platelet Vol. 9.9 fl (6.2-12.0); Monocyte# 0.54 X10^3/uL; Monocyte% 9.3 % (0-10); NRBC Flagged by Analyzer 0 % (0-5); Neutrophil # 3.39 X10^3/uL (2.7-7.7); Neutrophil % 58.3 % (47-70); Platelet Count 172 K/mm3 (150-450); RBC Distribution Width CV 12.8 % (11.6-14.6); RBC Distribution Width SD 46.5 fl (35.1-43.9); Red Blood Count 4.64 M/mm3 (4.6-6.2); White Blood Count 5.8 K/mm3 (4.4-11.0)
[2021-04-01 10:41] LABS: AST(SGOT) 22 U/L (15-37); Alanine Aminotransfer ALT/SGPT 29 U/L (16-61); Albumin, Serum 3.9 g/dL (3.2-5.0); Alkaline Phosphatase 69 U/L (45-117); Bilirubin, Direct 0.21 mg/dL (0.00-0.30); Protein, Total 6.9 g/dL (6.4-8.2)
== END 2021-04-01 18:00 | disposition home or self-care (01) ==
LOC: MTLAB 07:15
PROVIDERS: PCP Internal Medicine
DX: K76.89 Other specified diseases of liver (principal); K75.4 Autoimmune hepatitis
CPT/HCPCS: 36415; 80076; 85025

== ENCOUNTER → 2021-05-04 07:25 | Outpatient (CLI) | payer MEDICARE, BC, SELFPAY ==
[2020-07-29 11:54] VITALS: BMI 24.3
--- NOTE | 2021-05-04 07:28 | CT_ITS ---
STUDY: CT CHEST WITHOUT CONTRAST REASON FOR EXAM: Male, 65 years old. Follow-up for lung nodule. RADIATION DOSAGE (If Supplied By Facility): CTDIvol = ( 9.97 ) mGy, DLP = ( 373.84 ) mGycm TECHNIQUE: Transaxial imaging was performed without the administration of intravenous contrast material. Multiplanar coronal and sagittal images were reformatted. Individualized dose optimization techniques were used for this CT. COMPARISON: Comparison is made with prior study dated 04/16/2020. FINDINGS: Stable small benign-appearing bilateral axillary lymph nodes. Stable 4 mm calcified granuloma in the anterior aspect of the right upper lobe. Stable 5 mm noncalcified nodule in the left upper lobe posteriorly abutting the fissure. This is seen on axial image #75. The previously seen linear density in the posterior aspect of the right lower lobe has decreased in size. There is no demonstrated pleural abnormality. Normal heart and pericardium. There are multiple small lymph nodes within the mediastinum, which are normal in size and morphology most compatible with reactive lymph hyperplasia. Normal hilar regions. Normal unenhanced pulmonary arteries. Normal aorta arch and descending thoracic aorta. There are mild degenerative changes of the thoracic spine. There is no demonstrated abnormality of the visualized upper abdomen. CT/Chest without Contrast IMPRESSION: Stable small nodular densities in the lungs. The previously seen focal linear densities in the posterior aspect of the right lower lobe has decreased in size. Electronically Signed: Jelani Miller MD at 10:54 EDT , Service support ,
--- NOTE | 2021-05-04 07:28 | US_ITS ---
STUDY: THYROID ULTRASOUND REASON FOR EXAM: Male, 65 years old. NODULE TECHNIQUE: Ultrasound evaluation of the thyroid was performed with real-time and static herrera-scale imaging. COMPARISON: Comparison is made with prior examination dated 04/16/2020. FINDINGS: RIGHT LOBE: The right lobe of the thyroid gland is enlarged and measures 5.6 cm x 2.2 cm x 2.2 cm. There is a homogeneous echotexture. There is a 1.7 cm x 1.4 cm x 1.2 cm solid nodule with a microcalcifications and increased intranodular flow in the mid portion of the thyroid lobe. This is unchanged. There is also evidence of a 1.3 cm x 1 cm x 0.7 cm solid nodule with central nodular flow in the lower pole. LEFT LOBE: The left lobe of the thyroid gland is enlarged and measures 5.1 cm x 1.6 cm x 1 cm. There is a homogeneous echotexture. There is a 7 mm x 5 mm x 4 mm hypoechoic solid nodule in the lower pole. ISTHMUS: The isthmus measures 2 mm. There is a 9 mm x 4 mm x 8 mm solid nodule in the inferior aspect of the isthmus. The regional lymph nodes are normal. US/Thyroid IMPRESSION: Dominant solid hypoechoic nodule in the midpole of the right lobe of the thyroid. This is unchanged. Biopsy is recommended. The remainder of examination is unchanged. Electronically Signed: Jelani Miller MD at 15:06 EDT , Service support ,
== END ==
PROVIDERS: PCP Internal Medicine; Referring Provider Internal Medicine; Visit Provider Internal Medicine
DX: E04.1 Nontoxic single thyroid nodule (principal); R91.1 Solitary pulmonary nodule
CPT/HCPCS: 71250; 76536

== ENCOUNTER → 2021-06-17 08:56 | Outpatient (CLI) | payer MEDICARE, BC, SELFPAY | PROVIDERS: PCP Internal Medicine; Referring Provider Internal Medicine Cardiovascular Disease; Visit Provider Internal Medicine Cardiovascular Disease | DX: I48.0 Paroxysmal atrial fibrillation (principal) | CPT/HCPCS: 93225; 93226 ==

== ENCOUNTER → 2021-06-21 08:01 | Outpatient (CLI) | payer MEDICARE, BC, SELFPAY ==
--- NOTE | 2021-06-21 08:04 | US_ITS ---
STUDY: ABDOMINAL ULTRASOUND - RIGHT UPPER QUADRANT REASON FOR VISIT: Male, 65 years old autoimmune hep -- screeining for HCC TECHNIQUE: Ultrasound evaluation of the right upper quadrant was performed with real-time and static herrera-scale imaging. TECHNICAL QUALITY: Adequate. COMPARISON: None. FINDINGS: Liver: The liver measures 16.9 cm. There is normal echogenicity of the liver. The bile ducts are within normal limits. There is hepatic color flow. The direction of portal flow is hepatopetal. There is no demonstrated mass lesion. Gallbladder: Normal distended gallbladder. The gallbladder wall measures 2 mm. There is a negative sonographic Quintero''s sign. There is no pericholecystic fluid. There are gallbladder polyps. Common Bile Duct (C.B.D.): The common bile duct measures 2 mm. Pancreas: Normal size of the head, body and tail of the pancreas. There is normal echogenicity of the pancreas. There is no demonstrated pancreatic mass or cyst. Right Kidney: Normal size of the right kidney. The right kidney measures 10.9 cm. Normal renal cortex. The right cortex measures 2.0 cm. There is no demonstrated renal mass or cyst. There is no right hydronephrosis. US/Abdomen Limited IMPRESSION: Normal right upper quadrant ultrasound examination. Electronically Signed: Dewayne Mirza MD at 14:28 EDT Tel , Service support ,
== END ==
PROVIDERS: PCP Internal Medicine
DX: K75.4 Autoimmune hepatitis (principal)
CPT/HCPCS: 76705

== ENCOUNTER 2021-06-21 08:58 | Outpatient (RCR) | payer MEDICARE, BC, SELFPAY ==
[2021-03-10 11:29] VITALS: BMI 24.5
[2021-06-21 09:57] LABS: Absolute Lymphocyte Count 0.85 X10^3/uL (0.83-4.51); Absolute Neutrophil Count 2.1 X10^3/uL (2.0-7.7); Basophil# 0.02 X10^3/uL; Basophil% 0.6 % (0-1); Eosinophil# 0.09 X10^3/uL; Eosinophils% 2.5 % (0-5); Hematocrit 44.8 % (40-54); Lymphocyte # 0.85 X10^3/ul (0.83-4.51); Lymphocyte % 23.5 % (19-41); Mean Corp Hgb Conc 33.5 g/dL (32-36); Mean Corpuscular Hgb 32.8 pg (27.0-32.0); Mean Corpuscular Volume 97.8 fL (80-94); Mean Platelet Vol. 9.6 fl (6.2-12.0); Monocyte% 13.9 % (0-10); NRBC Flagged by Analyzer 0 % (0-5); Neutrophil # 2.13 X10^3/uL (2.7-7.7); Neutrophil % 58.9 % (47-70); Platelet Count 149 K/mm3 (150-450); RBC Distribution Width CV 12.3 % (11.6-14.6); RBC Distribution Width SD 44.8 fl (35.1-43.9); Red Blood Count 4.58 M/mm3 (4.6-6.2); White Blood Count 3.6 K/mm3 (4.4-11.0)
[2021-06-21 10:23] LABS: AST(SGOT) 29 U/L (15-37); Alanine Aminotransfer ALT/SGPT 26 U/L (16-61); Albumin, Serum 3.6 g/dL (3.2-5.0); Alkaline Phosphatase 81 U/L (45-117); Bilirubin, Direct 0.13 mg/dL (0.00-0.30); Globulin 3.4 g/dL (2.2-4.2)
[2021-06-22 14:45] LABS: AFP, Tumor Marker 1.6 ng/mL (0.0-8.3)
== END 2021-07-11 18:00 | disposition home or self-care (01) ==
LOC: MTLAB 08:58
PROVIDERS: PCP Internal Medicine
DX: K76.89 Other specified diseases of liver (principal); K75.4 Autoimmune hepatitis
CPT/HCPCS: 36415; 76705; 80076; 82105; 85025

== ENCOUNTER → 2021-08-12 07:20 | Outpatient (CLI) | payer MEDICARE, BC, SELFPAY ==
[2021-08-12 10:38] LABS: Absolute Lymphocyte Count 1.48 X10^3/uL (0.83-4.51); Absolute Neutrophil Count 4.2 X10^3/uL (2.0-7.7); Basophil# 0.03 X10^3/uL; Basophil% 0.5 % (0-1); Eosinophil# 0.11 X10^3/uL; Eosinophils% 1.7 % (0-5); Hematocrit 45.2 % (40-54); Hemoglobin 15.1 g/dL (13.0-16.5); Lymphocyte # 1.48 X10^3/ul (0.83-4.51); Lymphocyte % 22.9 % (19-41); Mean Corp Hgb Conc 33.4 g/dL (32-36); Mean Corpuscular Hgb 32.2 pg (27.0-32.0); Mean Corpuscular Volume 96.4 fL (80-94); Mean Platelet Vol. 9.7 fl (6.2-12.0); Monocyte# 0.69 X10^3/uL; Monocyte% 10.7 % (0-10); NRBC Flagged by Analyzer 0 % (0-5); Neutrophil # 4.15 X10^3/uL (2.7-7.7); Platelet Count 151 K/mm3 (150-450); RBC Distribution Width CV 12.7 % (11.6-14.6); RBC Distribution Width SD 45.3 fl (35.1-43.9); Red Blood Count 4.69 M/mm3 (4.6-6.2); White Blood Count 6.5 K/mm3 (4.4-11.0)
[2021-08-12 11:01] LABS: ALB/GLOB Ratio 1.1 RATIO (0.9-2.4); AST(SGOT) 18 U/L (15-37); Alanine Aminotransfer ALT/SGPT 26 U/L (16-61); Albumin, Serum 3.8 g/dL (3.2-5.0); Alkaline Phosphatase 74 U/L (45-117); Anion Gap 6 (5-15); BUN 26 mg/dL (7-18); BUN/Creat Ratio 28.6 RATIO (10-20); Calcium,Total 8.9 mg/dL (8.5-10.1); Chloride 104 mmol/L (98-107); Cholesterol 154 mg/dL (200); Creatinine, Serum 0.91 mg/dL (0.70-1.30); EST Glomerular Filtration Rate 89 mL/min (>60); Est Glom Filt Rate - Afr Amer 107 mL/min (>60); Globulin 3.4 g/dL (2.2-4.2); Glucose 86 mg/dL (74-106); High Density Lipoprotein 64 mg/dL; Potassium 3.9 mmol/L (3.5-5.1); Protein, Total 7.2 g/dL (6.4-8.2); Sodium Level 139 mmol/L (136-145); Thyroid Stim Hormone (TSH) 2.99 uIU/mL (0.358-3.74); Triglycerides 55 mg/dL; Very Low Density Lipoprotein 11 mg/dL (5-40)
== END ==
PROVIDERS: PCP Internal Medicine; Referring Provider Internal Medicine; Visit Provider Internal Medicine
DX: R79.89 Other specified abnormal findings of blood chemistry (principal); E04.1 Nontoxic single thyroid nodule
CPT/HCPCS: 36415; 80053; 80061; 84443; 85025

== ENCOUNTER 2021-12-24 07:24 | Outpatient (CLI) | payer MEDICARE, BC, SELFPAY ==
--- NOTE | 2021-12-24 07:27 | US_ITS ---
STUDY: ABDOMINAL ULTRASOUND - RIGHT UPPER QUADRANT REASON FOR VISIT: Male, 66 years old AUTOIMMUNE HEPATITIS -- LIVER TECHNIQUE: Ultrasound evaluation of the right upper quadrant was performed with real-time and static herrera-scale imaging. TECHNICAL QUALITY: Adequate. COMPARISON: None. FINDINGS: Liver: The liver measures 15.1 cm. There is normal echogenicity of the liver. The bile ducts are within normal limits. There is hepatic color flow. The direction of portal flow is hepatopetal. There is no demonstrated mass lesion. Gallbladder: Normal distended gallbladder. The gallbladder wall measures 3.0 mm. There is a negative sonographic Quintero''s sign. There is no pericholecystic fluid. There are no gallstones. Low-level echoes are seen within the gallbladder lumen suggestive of possible sludge. Common Bile Duct (C.B.D.): The common bile duct measures 2 mm. Pancreas: Normal size of the head, body and tail of the pancreas. There is normal echogenicity of the pancreas. There is no demonstrated pancreatic mass or cyst. Right Kidney: Normal size of the right kidney. The right kidney measures 10.8 cm x 4.1 cm x 4.7 cm. Normal renal cortex. The right cortex measures 1.5 cm. There is no demonstrated renal mass or cyst. There is no right hydronephrosis. US/Abdomen Limited IMPRESSION: Findings suggestive of sludge in the gallbladder lumen. Electronically Signed: Jelani Miller MD at 8:40 EDT ,
== END 2021-12-24 23:59 | disposition home or self-care (01) ==
LOC: US 07:26
PROVIDERS: PCP Internal Medicine; Referring Provider Internal Medicine; Visit Provider Internal Medicine
DX: K75.4 Autoimmune hepatitis (principal)
CPT/HCPCS: 76705

== ENCOUNTER → 2022-01-31 | Outpatient (CLI) | payer MEDICARE, BC, SELFPAY ==
[2022-01-31 11:07] LABS: Absolute Lymphocyte Count 1.17 X10^3/uL (0.83-4.51); Absolute Neutrophil Count 2.3 X10^3/uL (2.0-7.7); Basophil# 0.03 X10^3/uL; Basophil% 0.7 % (0-1); Eosinophil# 0.09 X10^3/uL; Eosinophils% 2.2 % (0-5); Hematocrit 45.4 % (40-54); Hemoglobin 15.2 g/dL (13.0-16.5); Lymphocyte # 1.17 X10^3/ul (0.83-4.51); Mean Corp Hgb Conc 33.5 g/dL (32-36); Mean Corpuscular Volume 98.5 fL (80-94); Mean Platelet Vol. 9.4 fl (6.2-12.0); Monocyte# 0.47 X10^3/uL; Monocyte% 11.7 % (0-10); NRBC Flagged by Analyzer 0 % (0-5); Neutrophil # 2.26 X10^3/uL (2.7-7.7); Neutrophil % 56.2 % (47-70); Platelet Count 157 K/mm3 (150-450); RBC Distribution Width CV 12.8 % (11.6-14.6); RBC Distribution Width SD 46.2 fl (35.1-43.9); Red Blood Count 4.61 M/mm3 (4.6-6.2)
[2022-01-31 11:30] LABS: ALB/GLOB Ratio 1.3 RATIO (0.9-2.4); AST(SGOT) 23 U/L (15-37); Alanine Aminotransfer ALT/SGPT 30 U/L (16-61); Alkaline Phosphatase 65 U/L (45-117); Anion Gap 5 (5-15); BUN 19 mg/dL (7-18); BUN/Creat Ratio 20.7 RATIO (10-20); Calcium,Total 8.8 mg/dL (8.5-10.1); Chloride 104 mmol/L (98-107); Creatinine, Serum 0.92 mg/dL (0.70-1.30); EST Glomerular Filtration Rate 88 mL/min (>60); Est Glom Filt Rate - Afr Amer 106 mL/min (>60); Glucose 101 mg/dL (74-106); PSA,Total - Annual Screen 0.38 ng/mL (0.00-4.00); Potassium 4.1 mmol/L (3.5-5.1); Sodium Level 140 mmol/L (136-145)
[2022-02-01 09:33] LABS: AFP, Tumor Marker 2.1 ng/mL (0.0-8.4)
== END | disposition home or self-care (01) ==
LOC: LABSPEC 10:34
PROVIDERS: PCP Internal Medicine; Referring Provider Internal Medicine; Visit Provider Internal Medicine
DX: K75.4 Autoimmune hepatitis (principal); Z12.5 Encounter for screening for malignant neoplasm of prostate
CPT/HCPCS: 80053; 82105; 84153; 85025; G0103

== ENCOUNTER → 2022-04-06 | Outpatient (CLI) | payer MEDICARE, BC, SELFPAY ==
--- NOTE | 2022-04-06 08:33 | BD_ITS ---
STUDY: DUAL ENERGY X-RAY ABSORPTIOMETRY / DXA REASON FOR EXAM: Male, 66 years old. M85.89 TECHNIQUE: Bone Mineral Density (BMD) measurements of lumbar spine and bilateral hips were obtained. COMPARISON: Comparison is made with prior examination dated 10/16/2019. FINDINGS: Lumbar Spine (L1-L4): g/cm2 (1.192) / T-score (0.9) / Z-score (1.7) Findings are suggestive of normal bone density with a low fracture risk. Left Femur Total: g/cm2 (0.982) / T-score (-0.3) / Z-score (0.2) Left Femoral Neck: g/cm2 (0.770) / T-score (-1.1) / Z-score (0.0) Right Femur Total: g/cm2 (1.007) / T-score (-0.2) / Z-score (0.4) Right Femoral Neck: g/cm2 (0.774) / T-score (-1.1) / Z-score (0.0) The T-Scores on the most recent prior examination were: Lumbar Spine (L1-L4): There has been worsening of bone density since the previous examination. Left Femur Total: which represents an improvement of 6.8%. Right Femur Total: which represents an improvement of 7.8%. BD/Dexa Bone Density Study IMPRESSION: The patient is considered osteopenic as outlined below according to World Jamar Organization (WHO) criteria with a low fracture risk. There has been improvement of bone density since the previous examination. Reference Information: The T-score is the number of standard deviations above or below the standard which is normal for young adults at their peak bone mineral density. The World Health Organization (WHO) interprets the T-scores as follows: Above -1 Normal bone density Between -1 and -2.5 Osteopenia Equal to / or below -2.5 Osteoporosis As a practical clinical guideline, osteopenia may be graded as follows: Mild -1 through -1.5 Moderate -1.6 through -2.0 Severe -2.1 through -2.4 The Z-score is the number of standard deviations above or below age-matched controls. A Z-score of less than -1.5 would be considered abnormal. References: 1. NIH Osteoporosis and Related Bone Diseases www osteo.org 2. International Society for Clinical Densitometry www iscd.org 3. National Osteoporosis Foundation www nof.org Electronically Signed: Jelani Miller MD at 10:32 EDT ,
[2022-04-06 09:57] LABS: Absolute Lymphocyte Count 1.45 X10^3/uL (0.83-4.51); Absolute Neutrophil Count 3.4 X10^3/uL (2.0-7.7); Basophil# 0.03 X10^3/uL; Basophil% 0.6 % (0-1); Eosinophil# 0.11 X10^3/uL; Hemoglobin 15.1 g/dL (13.0-16.5); Lymphocyte # 1.45 X10^3/ul (0.83-4.51); Lymphocyte % 26.9 % (19-41); Mean Corp Hgb Conc 34.3 g/dL (32-36); Mean Corpuscular Hgb 33.5 pg (27.0-32.0); Mean Corpuscular Volume 97.6 fL (80-94); Mean Platelet Vol. 8.9 fl (6.2-12.0); Monocyte# 0.44 X10^3/uL; Monocyte% 8.2 % (0-10); NRBC Flagged by Analyzer 0 % (0-5); Neutrophil # 3.35 X10^3/uL (2.7-7.7); Neutrophil % 62.1 % (47-70); Platelet Count 202 K/mm3 (150-450); RBC Distribution Width SD 46.2 fl (35.1-43.9); Red Blood Count 4.51 M/mm3 (4.6-6.2); White Blood Count 5.4 K/mm3 (4.4-11.0)
[2022-04-06 10:15] LABS: AST(SGOT) 22 U/L (15-37); Alanine Aminotransfer ALT/SGPT 27 U/L (16-61); Albumin, Serum 3.8 g/dL (3.2-5.0); Alkaline Phosphatase 72 U/L (45-117); Bilirubin, Direct 0.19 mg/dL (0.00-0.30); Protein, Total 6.8 g/dL (6.4-8.2)
== END | disposition home or self-care (01) ==
PROVIDERS: PCP Internal Medicine; Referring Provider Internal Medicine; Visit Provider Internal Medicine
DX: M85.89 Other specified disorders of bone density and structure, multiple sites (principal); K75.4 Autoimmune hepatitis
CPT/HCPCS: 36415; 77080; 80076; 85025

== ENCOUNTER → 2022-04-25 | Outpatient (CLI) | payer MEDICARE, BC, SELFPAY ==
--- NOTE | 2022-04-25 12:01 | US_ITS ---
STUDY: THYROID ULTRASOUND REASON FOR EXAM: Male, 66 years old. NODULE TECHNIQUE: Ultrasound evaluation of the thyroid was performed with real-time and static herrera-scale imaging. COMPARISON: May 04 2021 7:46am . FINDINGS: RIGHT LOBE: The right lobe of the thyroid gland measures 5.2 x 1.9 cm. There is a homogeneous echotexture. There are 2 nodules. Nodule 1 measures 16 x 15 mm and nodule 2. Measures 13 x 10 mm. These are midpole nodules. LEFT LOBE: The left lobe of the thyroid gland measures 4.8 x 1.5 cm. There is a homogeneous echotexture. There is a single nodule. This measures 5 x 6 x 3 mm.. ISTHMUS: The isthmus measures 3 mm. Isthmus nodule measures 8 x 6 x 4 mm. US/Thyroid IMPRESSION: #1 RIGHT nodules. This nodule is solid or almost completely solid, hyperechoic or isoechoic, [id number], smoothly marginated, is peripherally calcified and contains punctate echogenic foci. TI-RADS points: 8. TI-RADS category: TR5. This nodule is highly suspicious. Recommend FNA evaluation. Nodule #2 on the right. This nodule is solid or almost completely solid, hypoechoic, [id number]-[id number]-[id number], smoothly marginated and contains no echogenic foci. TI-RADS points: 4. TI-RADS category: TR4. This nodule is moderately suspicious. Recommend follow-up thyroid ultrasounds at 1, 2 and 4 years. There are left nodules. This nodule is mixed cystic and solid, hyperechoic or isoechoic, hymru-mvmj-qmko, smoothly marginated and contains no echogenic foci. TI-RADS points: 2. TI-RADS category: TR2. This nodule is not suspicious and no FNA or follow-up is necessary. Isthmus nodule. This nodule is solid or almost completely solid, hyperechoic or isoechoic, [id number]-[id number], smoothly marginated and contains no echogenic foci. TI-RADS points: 3. TI-RADS category: TR3. This nodule is mildly suspicious but no FNA or follow-up is necessary given the small size of this nodule. Electronically Signed: Shahzad Spicer MD at 21:53 EDT ,
== END | disposition home or self-care (01) ==
LOC: US 12:00
PROVIDERS: PCP Internal Medicine; Referring Provider Internal Medicine; Visit Provider Internal Medicine
DX: K75.4 Autoimmune hepatitis (principal)
CPT/HCPCS: 76536

== ENCOUNTER → 2022-06-27 | Outpatient (CLI) | payer MEDICARE, BC, SELFPAY ==
--- NOTE | 2022-06-27 09:26 | US_ITS ---
STUDY: ABDOMINAL ULTRASOUND - RIGHT UPPER QUADRANT REASON FOR VISIT: Male, 66 years old AUTOIMMUNE HEPATITIS TECHNIQUE: Ultrasound evaluation of the right upper quadrant was performed with real-time and static herrera-scale imaging. TECHNICAL QUALITY: Adequate. COMPARISON: Comparison is made with prior study dated 12/24/2021. FINDINGS: Liver: The liver measures 17.1 cm. There is normal echogenicity of the liver. The bile ducts are within normal limits. There is hepatic color flow. The direction of portal flow is hepatopetal. There is no demonstrated mass lesion. Gallbladder: Normal distended gallbladder. The gallbladder wall measures 1 mm. There is a negative sonographic Quintero''s sign. There is no pericholecystic fluid. There are no gallstones. Once again, mobile echogenic material is seen along the dependent portion of the gallbladder lumen. This may represent either sludge or possible gravel stones. Common Bile Duct (C.B.D.): The common bile duct measures 3 mm. Pancreas: Normal size of the head, body and tail of the pancreas. There is normal echogenicity of the pancreas. There is no demonstrated pancreatic mass or cyst. Right Kidney: Normal size of the right kidney. The right kidney measures 9.9 cm x 5.27 x 4.4 cm. Normal renal cortex. The right cortex measures 1.1 cm. There is no demonstrated renal mass or cyst. There is no right hydronephrosis. US/Liver IMPRESSION: Stable low level echoes seen along the dependent portion of the gallbladder lumen. Electronically Signed: Jelani Miller MD at 15:05 EDT ,
[2022-06-27 12:25] LABS: Absolute Lymphocyte Count 1.45 X10^3/uL (0.83-4.51); Absolute Neutrophil Count 3.2 X10^3/uL (2.0-7.7); Basophil# 0.03 X10^3/uL; Basophil% 0.6 % (0-1); Eosinophil# 0.06 X10^3/uL; Eosinophils% 1.1 % (0-5); Hematocrit 50.7 % (40-54); Hemoglobin 17.5 g/dL (13.0-16.5); Lymphocyte # 1.45 X10^3/ul (0.83-4.51); Lymphocyte % 27.7 % (19-41); Mean Corp Hgb Conc 34.5 g/dL (32-36); Mean Corpuscular Hgb 33.5 pg (27.0-32.0); Mean Corpuscular Volume 97.1 fL (80-94); Mean Platelet Vol. 9.8 fl (6.2-12.0); Monocyte# 0.52 X10^3/uL; Monocyte% 9.9 % (0-10); NRBC Flagged by Analyzer 0 % (0-5); Neutrophil # 3.17 X10^3/uL (2.7-7.7); Neutrophil % 60.5 % (47-70); Platelet Count 189 K/mm3 (150-450); RBC Distribution Width CV 12.7 % (11.6-14.6); RBC Distribution Width SD 45.4 fl (35.1-43.9); Red Blood Count 5.22 M/mm3 (4.6-6.2); White Blood Count 5.2 K/mm3 (4.4-11.0)
[2022-06-27 12:49] LABS: AST(SGOT) 20 U/L (15-37); Alanine Aminotransfer ALT/SGPT 23 U/L (16-61); Albumin, Serum 3.7 g/dL (3.2-5.0); Alkaline Phosphatase 79 U/L (45-117); Bilirubin, Direct 0.17 mg/dL (0.00-0.30); Globulin 3.5 g/dL (2.2-4.2); Protein, Total 7.2 g/dL (6.4-8.2)
[2022-06-28 16:14] LABS: AFP, Tumor Marker 2.1 ng/mL (0.0-8.4)
== END | disposition home or self-care (01) ==
PROVIDERS: PCP Internal Medicine; Referring Provider Internal Medicine; Visit Provider Internal Medicine
DX: K75.4 Autoimmune hepatitis (principal); E04.1 Nontoxic single thyroid nodule
CPT/HCPCS: 36415; 76705; 80076; 82105; 85025

== ENCOUNTER 2022-09-16 07:08 | Outpatient (RCR) | payer MEDICARE, BC, SELFPAY ==
[2022-09-16 10:11] LABS: Absolute Lymphocyte Count 1.36 X10^3/uL (0.83-4.51); Absolute Neutrophil Count 2.7 X10^3/uL (2.0-7.7); Basophil# 0.03 X10^3/uL; Basophil% 0.7 % (0-1); Eosinophil# 0.04 X10^3/uL; Eosinophils% 0.9 % (0-5); Hematocrit 45.1 % (40-54); Hemoglobin 15.5 g/dL (13.0-16.5); Lymphocyte # 1.36 X10^3/ul (0.83-4.51); Lymphocyte % 29.8 % (19-41); Mean Corp Hgb Conc 34.4 g/dL (32-36); Mean Corpuscular Hgb 33.7 pg (27.0-32.0); Mean Platelet Vol. 9.2 fl (6.2-12.0); Monocyte# 0.45 X10^3/uL; Monocyte% 9.9 % (0-10); NRBC Flagged by Analyzer 0 % (0-5); Neutrophil # 2.67 X10^3/uL (2.7-7.7); Neutrophil % 58.5 % (47-70); Platelet Count 165 K/mm3 (150-450); RBC Distribution Width CV 12.6 % (11.6-14.6); RBC Distribution Width SD 45.1 fl (35.1-43.9); White Blood Count 4.6 K/mm3 (4.4-11.0)
[2022-09-16 10:28] LABS: Vitamin D,25 Hydroxy 70.2 ng/mL
[2022-09-16 10:31] LABS: Hemoglobin A1c 5.3 % (3.8-5.6)
[2022-09-16 10:48] LABS: ALB/GLOB Ratio 1.3 RATIO (0.9-2.4); AST(SGOT) 16 U/L (15-37); Alanine Aminotransfer ALT/SGPT 23 U/L (16-61); Albumin, Serum 3.8 g/dL (3.2-5.0); Alkaline Phosphatase 75 U/L (45-117); Anion Gap 9 (5-15); BUN 23 mg/dL (7-18); BUN/Creat Ratio 21.9 RATIO (10-20); Calcium,Total 9.3 mg/dL (8.5-10.1); Chloride 105 mmol/L (98-107); Cholesterol 147 mg/dL (200); Creatinine, Serum 1.05 mg/dL (0.70-1.30); EST Glomerular Filtration Rate 75 mL/min (>60); Est Glom Filt Rate - Afr Amer 90 mL/min (>60); Glucose 88 mg/dL (74-106); High Density Lipoprotein 62 mg/dL; Potassium 3.9 mmol/L (3.5-5.1); Protein, Total 6.8 g/dL (6.4-8.2); Sodium Level 140 mmol/L (136-145); Triglycerides 51 mg/dL; Very Low Density Lipoprotein 10 mg/dL (5-40)
== END 2022-09-16 09:08 | disposition home or self-care (01) ==
LOC: MTLAB 07:08
PROVIDERS: PCP Internal Medicine; Referring Provider Internal Medicine; Visit Provider Internal Medicine
DX: K75.4 Autoimmune hepatitis (principal); M85.80 Other specified disorders of bone density and structure, unspecified site; R73.01 Impaired fasting glucose
CPT/HCPCS: 36415; 80053; 80061; 82306; 83036; 85025

== ENCOUNTER → 2023-01-04 | Outpatient (CLI) | payer MEDICARE, BC, SELFPAY ==
--- NOTE | 2023-01-04 07:29 | US_ITS ---
STUDY: ABDOMINAL ULTRASOUND - RIGHT UPPER QUADRANT REASON FOR VISIT: Male, 67 years old autoimmune hepatitis -- autoimmune hepatitis TECHNIQUE: Ultrasound evaluation of the right upper quadrant was performed with real-time and static herrera-scale imaging. TECHNICAL QUALITY: Adequate. COMPARISON: Comparison is made with prior study June 27, 2022. FINDINGS: Liver: The liver measures 15.3 cm. There is normal echogenicity of the liver. The bile ducts are within normal limits. There is hepatic color flow. The direction of portal flow is hepatopetal. There is no demonstrated mass lesion. Gallbladder: Normal distended gallbladder. The gallbladder wall measures 2 mm. There is a negative sonographic Quintero''s sign. There is no pericholecystic fluid. Once again, fine echogenic material is seen along the dependent portion of the gallbladder lumen. These most likely represent small gallstones. Common Bile Duct (C.B.D.): The common bile duct measures 4 mm. Pancreas: Normal size of the head, body and tail of the pancreas. There is normal echogenicity of the pancreas. There is no demonstrated pancreatic mass or cyst. Right Kidney: Normal size of the right kidney. The right kidney measures 10.1 cm x 5.8 cm x 5.3 cm. Normal renal cortex. The right cortex measures 1.6 cm. There is no demonstrated renal mass or cyst. There is no right hydronephrosis. US/Abdomen Limited IMPRESSION: Findings suggestive of possible tiny gallstones along the dependent portion of the gallbladder lumen. Electronically Signed: Jelani Miller MD at 15:21 EDT ,
== END | disposition home or self-care (01) ==
LOC: US 07:28
PROVIDERS: PCP Internal Medicine; Referring Provider Internal Medicine; Visit Provider Internal Medicine
DX: K75.4 Autoimmune hepatitis (principal)
CPT/HCPCS: 76705

== ENCOUNTER 2023-04-10 12:21 | Outpatient (CLI) | payer MEDICARE, BC, SELFPAY ==
[2023-04-10 12:51] LABS: Bacteria 0 SEEN /hpf (None Seen); Mucous, Urine 0 SEEN /hpf (<or=2+); Red Blood Cells-Urine 0 SEEN /hpf (0-5); Squamous Epithelial Cells - UA 0 SEEN /hpf (0-5); White Blood Cells 0 SEEN /hpf (0-5)
[2023-04-10 13:00] LABS: Absolute Lymphocyte Count 1.17 X10^3/uL (0.83-4.51); Absolute Neutrophil Count 2.5 X10^3/uL (2.0-7.7); Basophil# 0.02 X10^3/uL; Basophil% 0.5 % (0-1); Eosinophil# 0.06 X10^3/uL; Eosinophils% 1.5 % (0-5); Hematocrit 46.6 % (40-54); Hemoglobin 15.6 g/dL (13.0-16.5); Lymphocyte # 1.17 X10^3/ul (0.83-4.51); Lymphocyte % 28.4 % (19-41); Mean Corp Hgb Conc 33.5 g/dL (32-36); Mean Corpuscular Hgb 33.3 pg (27.0-32.0); Mean Corpuscular Volume 99.6 fL (80-94); Mean Platelet Vol. 9.8 fl (6.2-12.0); Monocyte# 0.39 X10^3/uL; Monocyte% 9.5 % (0-10); NRBC Flagged by Analyzer 0 % (0-5); Neutrophil # 2.47 X10^3/uL (2.7-7.7); Neutrophil % 59.9 % (47-70); Platelet Count 171 K/mm3 (150-450); RBC Distribution Width CV 13.1 % (11.6-14.6); Red Blood Count 4.68 M/mm3 (4.6-6.2); White Blood Count 4.1 K/mm3 (4.4-11.0)
[2023-04-10 13:19] LABS: Color, Urine Yellow (Yellow); Glucose, Dipstick Normal (Normal); Ketone-Dipstick 5 mg/dl (Negative); Leukocyte Esterase-Dipstick Negative /ul (Negative); Nitrite-Dipstick Negative (Negative); Occult Blood-Urine Negative /ul (Negative); Protein-Dipstick Negative (Negative); Urine Bilirubin Dipstick Negative (Negative); Urine Clarity Clear (Clear); Urine Urobilinogen Normal (Normal); Urine pH 6.5 (5.0 - 8.0)
[2023-04-10 13:42] LABS: ALB/GLOB Ratio 1.4 RATIO (0.9-2.4); AST(SGOT) 25 U/L (15-37); Alanine Aminotransfer ALT/SGPT 25 U/L (16-61); Alkaline Phosphatase 90 U/L (45-117); Anion Gap 4 (5-15); BUN 22 mg/dL (7-18); BUN/Creat Ratio 18.2 RATIO (10-20); Calcium,Total 9.2 mg/dL (8.5-10.1); Chloride 106 mmol/L (98-107); Creatinine, Serum 1.21 mg/dL (0.70-1.30); EST Glomerular Filtration Rate 63 mL/min (>60); Est Glom Filt Rate - Afr Amer 77 mL/min (>60); Globulin 2.9 g/dL (2.2-4.2); Glucose 98 mg/dL (74-106); Potassium 4.4 mmol/L (3.5-5.1); Protein, Total 6.9 g/dL (6.4-8.2); Sodium Level 141 mmol/L (136-145)
[2023-04-10 14:31] LABS: Microalbumin,Random Urine 6.8 mg/L (NO RANGE EST.); Microalbumin:Creatinine Ratio 24.5 mg/g CRE (<30 mg/g CRE)
[2023-04-12 04:07] LABS: AFP, Tumor Marker 2.2 ng/mL (0.0-8.4)
== END 2023-04-10 23:59 | disposition home or self-care (01) ==
LOC: LABSPEC 12:27
PROVIDERS: PCP Internal Medicine; Referring Provider Internal Medicine; Visit Provider Internal Medicine
DX: K75.4 Autoimmune hepatitis (principal); I48.91 Unspecified atrial fibrillation; R10.2 Pelvic and perineal pain
CPT/HCPCS: 80053; 81001; 82043; 82105; 82570; 85025; 87086

== ENCOUNTER → 2023-04-29 | Outpatient (CLI) | payer MEDICARE, BC, SELFPAY ==
--- NOTE | 2023-04-29 07:52 | US_ITS ---
STUDY: THYROID ULTRASOUND REASON FOR EXAM: Male, 67 years old. thyroid nodule TECHNIQUE: Ultrasound evaluation of the thyroid was performed with real-time and static herrera-scale imaging. COMPARISON: April 25, 2022, May 04, 2021, April 16, 2020 FINDINGS: RIGHT LOBE: The right lobe of the thyroid gland measures 5.6 x 2.4 x 2.4 cm. There is a homogeneous echotexture. There are 2 measured nodules: 1. 1.7 x 1.3 x 1.3 cm. This nodule is solid or almost completely solid, hyperechoic or isoechoic, kjmoe-wsal-xomu, smoothly marginated and contains punctate echogenic foci. TI-RADS points: 6. TI-RADS category: TR4. This nodule is moderately suspicious. Recommend FNA evaluation. 2. 1.3 x 1.0 x 0.8 cm. This nodule is solid or almost completely solid, hypoechoic, vyggo-ozzb-deda, smoothly marginated and contains no echogenic foci. TI-RADS points: 4. TI-RADS category: TR4. This nodule is moderately suspicious. Recommend follow-up thyroid ultrasound in 2 years. LEFT LOBE: The left lobe of the thyroid gland measures 4.9 x 1.6 x 1.2 cm. There is a homogeneous echotexture. 6 x 6 x 4 mm nodule. This nodule is mixed cystic and solid, hypoechoic, hdukx-pgld-[id number], smoothly marginated and contains no echogenic foci. TI-RADS points: 3. TI-RADS category: TR3. This nodule is mildly suspicious but no FNA or follow-up is necessary given the small size of this nodule. ISTHMUS: The isthmus measures 2 mm. 8 x 7 x 4 mm nodule. This nodule is solid or almost completely solid, hypoechoic, wtnud-olur-pzpt, smoothly marginated and contains no echogenic foci. TI-RADS points: 4. TI-RADS category: TR4. This nodule is moderately suspicious but no FNA or follow-up is necessary given the small size of this nodule. The regional lymph nodes are normal. US/Thyroid IMPRESSION: 1. Slightly increased size of right lower lobe nodule (TR 5). FNA sampling recommended. 2. Remaining nodule stable, as above. Electronically Signed: Valentin Finch (Brooks), at 20:15 EDT Reading Location ID and State: [facility] / [place] , Service support ,
== END | disposition home or self-care (01) ==
LOC: US 07:51
PROVIDERS: PCP Internal Medicine; Referring Provider Internal Medicine; Visit Provider Internal Medicine
DX: E04.1 Nontoxic single thyroid nodule (principal)
CPT/HCPCS: 76536

== ENCOUNTER → 2023-06-20 | Outpatient (CLI) | payer MEDICARE, BC, SELFPAY ==
--- NOTE | 2023-06-20 06:50 | CT_ITS ---
STUDY: CTA CHEST REASON FOR EXAM: Male, 67 years old. dilation of thoracic aorta -- dilation of thoracic aorta RADIATION DOSAGE (If Supplied By Facility): CTDIvol = ( 20.53 ) mGy, DLP = ( 290.14 ) mGycm TECHNIQUE: The examination was performed with the intravenous administration of IV 100mL Isovue-370. Post-processing of the angiographic images was performed, with multiplanar reformation and 3D reconstruction. Individualized dose optimization techniques were used for this CT. COMPARISON: April 16, 2020, May 04, 2021. FINDINGS: No main pulmonary arterial enlargement. Limited pulmonary arterial enhancement on this aortic exam. Aorta measures 4.1 cm at the sinus of Valsalva, 4.0 cm at the sinotubular junction, 3.9 cm mid ascending aorta, 2.5 cm mid arch, 2.2 cm mid descending, 2.2 cm above the diaphragm, 2.0 cm at the inferior most renal artery, unchanged from May 04, 2021 and April 16, 2020. Three-vessel arch noted. No dissection. No cardiomegaly. No pericardial effusion. No densely calcified coronary atherosclerosis No mediastinal or hilar adenopathy. No endobronchial lesion. Minimal atelectasis. No consolidation, effusion, pneumothorax. Normal osseous structures. Normal visualized upper abdomen. CT/CTA Chest W/WO Contrast IMPRESSION: Mild ascending aortic ectasia without change from April 16, 2020. Electronically Signed: Vladislav Toledo MD at 8:10 EDT ,
[2023-06-20 07:15] LABS: CREATININE FINGERSTICK 1.1 mg/dL (0.70-1.30); EGFR FINGERSTICK > 60.0000 mL/min (>60)
== END | disposition home or self-care (01) ==
LOC: CT 06:50
PROVIDERS: PCP Internal Medicine; Referring Provider Internal Medicine; Visit Provider Internal Medicine
DX: I77.810 Thoracic aortic ectasia (principal)
CPT/HCPCS: 71275; Q9967

== ENCOUNTER → 2023-06-28 | Outpatient (CLI) | payer MEDICARE, BC, SELFPAY ==
--- NOTE | 2023-06-28 07:51 | US_ITS ---
STUDY: ABDOMINAL ULTRASOUND - RIGHT UPPER QUADRANT; ELASTOGRAPHY REASON FOR VISIT: Male, 67 years old. History of autoimmune hepatitis. TECHNIQUE: Ultrasound evaluation of the right upper quadrant was performed with real-time and static herrera-scale imaging. Point quantification shear wave elastography was performed ([employer]). TECHNICAL QUALITY: Adequate. COMPARISON: Comparison is made with prior study dated January 04, 2023. FINDINGS: Liver: The liver measures 16 cm. There is mild increased echogenicity consistent with mild degree of fatty infiltration. The bile ducts are within normal limits. There is hepatic color flow. The direction of portal flow is hepatopetal. There is no demonstrated mass lesion. Median liver stiffness measured 3.9 kPa. Gallbladder: Normal distended gallbladder. The gallbladder wall measures 2.7 mm. There is a negative sonographic Quintero''s sign. There is no pericholecystic fluid. There are no gallstones. Sludge is seen within the dependent portion of the gallbladder lumen. Common Bile Duct (C.B.D.): The common bile duct measures 3.9 mm. Pancreas: There is normal echogenicity of the visualized pancreas. There is no demonstrated pancreatic mass or cyst. Right Kidney: Normal size of the right kidney. The right kidney measures 10.7 cm x 4.5 cm x 5.5 cm. Normal renal cortex. The right cortex measures 1.4 cm. There is no demonstrated renal mass or cyst. There is no right hydronephrosis. US/ABD Limited w/ Elastography IMPRESSION: 1. Liver stiffness measures 3.9 kPa compatible with FO (Normal) Metavir score. 2. Mild degree of fatty infiltration of the liver. 3. Sludge is seen within the gallbladder lumen. Electronically Signed: Jelani Miller MD at 11:08 EDT ,
[2023-06-28 10:20] LABS: Absolute Neutrophil Count 2.2 X10^3/uL (2.0-7.7); Basophil# 0.03 X10^3/uL; Basophil% 0.7 % (0-1); Eosinophil# 0.12 X10^3/uL; Eosinophils% 2.8 % (0-5); Hematocrit 45.9 % (40-54); Hemoglobin 15.2 g/dL (13.0-16.5); Lymphocyte % 34.6 % (19-41); Mean Corp Hgb Conc 33.1 g/dL (32-36); Mean Corpuscular Hgb 32.8 pg (27.0-32.0); Mean Corpuscular Volume 99.1 fL (80-94); Mean Platelet Vol. 9.6 fl (6.2-12.0); Monocyte# 0.53 X10^3/uL; Monocyte% 12.2 % (0-10); NRBC Flagged by Analyzer 0 % (0-5); Neutrophil # 2.15 X10^3/uL (2.7-7.7); Neutrophil % 49.5 % (47-70); Platelet Count 168 K/mm3 (150-450); RBC Distribution Width CV 12.4 % (11.6-14.6); RBC Distribution Width SD 45.8 fl (35.1-43.9); Red Blood Count 4.63 M/mm3 (4.6-6.2); White Blood Count 4.3 K/mm3 (4.4-11.0)
[2023-06-28 11:32] LABS: AST(SGOT) 17 U/L (15-37); Alanine Aminotransfer ALT/SGPT 26 U/L (16-61); Albumin, Serum 3.7 g/dL (3.2-5.0); Alkaline Phosphatase 83 U/L (45-117); Bilirubin, Direct 0.19 mg/dL (0.00-0.30); Globulin 3.2 g/dL (2.2-4.2); Protein, Total 6.9 g/dL (6.4-8.2)
== END | disposition home or self-care (01) ==
LOC: US 07:39
PROVIDERS: PCP Internal Medicine; Referring Provider Internal Medicine; Visit Provider Internal Medicine
DX: K75.4 Autoimmune hepatitis (principal)
CPT/HCPCS: 91200; 36415; 76705; 76981; 80076; 82105; 85025

== ENCOUNTER → 2023-10-09 | Outpatient (CLI) | payer MEDICARE, BC, SELFPAY ==
[2023-10-09 15:36] LABS: AST(SGOT) 23 U/L (15-37); Alanine Aminotransfer ALT/SGPT 26 U/L (16-61); Albumin, Serum 4.1 g/dL (3.2-5.0); Alkaline Phosphatase 86 U/L (45-117); Bilirubin, Direct 0.17 mg/dL (0.00-0.30); Globulin 3.3 g/dL (2.2-4.2); PSA,Total - Annual Screen 0.51 ng/mL (0.00-4.00); Protein, Total 7.4 g/dL (6.4-8.2)
[2023-10-09 17:34] LABS: Absolute Lymphocyte Count 1.14 X10^3/uL (0.83-4.51); Absolute Neutrophil Count 2.7 X10^3/uL (2.0-7.7); Basophil# 0.02 X10^3/uL; Basophil% 0.5 % (0-1); Eosinophil# 0.02 X10^3/uL; Eosinophils% 0.5 % (0-5); Hematocrit 46.5 % (40-54); Hemoglobin 15.7 g/dL (13.0-16.5); Lymphocyte # 1.14 X10^3/ul (0.83-4.51); Lymphocyte % 27.2 % (19-41); Mean Corp Hgb Conc 33.8 g/dL (32-36); Mean Corpuscular Hgb 32.5 pg (27.0-32.0); Mean Corpuscular Volume 96.3 fL (80-94); Mean Platelet Vol. 9.3 fl (6.2-12.0); Monocyte# 0.35 X10^3/uL; Monocyte% 8.4 % (0-10); NRBC Flagged by Analyzer 0 % (0-5); Neutrophil # 2.65 X10^3/uL (2.7-7.7); Neutrophil % 63.2 % (47-70); Platelet Count 154 K/mm3 (150-450); RBC Distribution Width CV 12.9 % (11.6-14.6); RBC Distribution Width SD 46.3 fl (35.1-43.9); Red Blood Count 4.83 M/mm3 (4.6-6.2); White Blood Count 4.2 K/mm3 (4.4-11.0)
== END | disposition home or self-care (01) ==
PROVIDERS: PCP Internal Medicine; Referring Provider Internal Medicine; Visit Provider Internal Medicine
DX: Z12.5 Encounter for screening for malignant neoplasm of prostate (principal); K75.4 Autoimmune hepatitis
CPT/HCPCS: 36415; 80076; 84153; 85025; G0103

== ENCOUNTER → 2023-12-25 | Outpatient (CLI) | payer MEDICARE, BC, SELFPAY ==
--- NOTE | 2023-12-25 07:24 | US_ITS ---
STUDY: ABDOMINAL ULTRASOUND - RIGHT UPPER QUADRANT REASON FOR VISIT: Male, 68 years old autoimmune hepatitis -- due in December TECHNIQUE: Ultrasound evaluation of the right upper quadrant was performed with real-time and static herrera-scale imaging. TECHNICAL QUALITY: Adequate. COMPARISON: Comparison is made with prior study dated June 28, 2023. FINDINGS: Liver: The liver measures 15.1 cm. There is increased echogenicity consistent with a mild degree of fatty infiltration. The bile ducts are within normal limits. There is hepatic color flow. The direction of portal flow is hepatopetal. There is no demonstrated mass lesion. Gallbladder: Normal distended gallbladder. The gallbladder wall measures 2.0 mm. There is a negative sonographic Quintero''s sign. There is no pericholecystic fluid. There are no gallstones. Sludge is seen within the gallbladder lumen. Common Bile Duct (C.B.D.): The common bile duct measures 4 mm. Pancreas: Normal size of the head, body and tail of the pancreas. There is normal echogenicity of the pancreas. There is no demonstrated pancreatic mass or cyst. Right Kidney: Normal size of the right kidney. The right kidney measures 10.4 cm x 6.1 cm x 4.3 cm. Normal renal cortex. The right cortex measures 1.7 cm. There is no demonstrated renal mass or cyst. There is no right hydronephrosis. US/Abdomen Limited IMPRESSION: Mild degree of fatty infiltration of the liver. Sludge is seen in the gallbladder lumen. Electronically Signed: Jelani Miller MD at 13:26 EDT ,
[2023-12-25 10:25] LABS: Absolute Neutrophil Count 3.2 X10^3/uL (2.0-7.7); Basophil# 0.04 X10^3/uL; Basophil% 0.8 % (0-1); Eosinophil# 0.09 X10^3/uL; Eosinophils% 1.7 % (0-5); Hematocrit 47.2 % (40-54); Hemoglobin 15.7 g/dL (13.0-16.5); Lymphocyte % 26.8 % (19-41); Mean Corp Hgb Conc 33.3 g/dL (32-36); Mean Corpuscular Hgb 32.4 pg (27.0-32.0); Mean Corpuscular Volume 97.5 fL (80-94); Monocyte# 0.47 X10^3/uL; NRBC Flagged by Analyzer 0 % (0-5); Neutrophil # 3.22 X10^3/uL (2.7-7.7); Neutrophil % 61.5 % (47-70); Platelet Count 170 K/mm3 (150-450); RBC Distribution Width CV 12.6 % (11.6-14.6); Red Blood Count 4.84 M/mm3 (4.6-6.2); White Blood Count 5.2 K/mm3 (4.4-11.0)
[2023-12-25 10:44] LABS: AST(SGOT) 24 U/L (15-37); Alanine Aminotransfer ALT/SGPT 32 U/L (16-61); Albumin, Serum 4.1 g/dL (3.2-5.0); Alkaline Phosphatase 82 U/L (45-117); Globulin 3.1 g/dL (2.2-4.2); Protein, Total 7.2 g/dL (6.4-8.2)
[2023-12-26 04:07] LABS: AFP, Tumor Marker 2.1 ng/mL (0.0-8.4)
== END | disposition home or self-care (01) ==
PROVIDERS: PCP Internal Medicine; Referring Provider Internal Medicine; Visit Provider Internal Medicine
DX: K75.4 Autoimmune hepatitis (principal)
CPT/HCPCS: 36415; 76705; 80076; 82105; 85025

== ENCOUNTER → 2024-04-05 | Outpatient (CLI) | payer MEDICARE, BC, SELFPAY ==
[2024-04-05 12:18] LABS: Absolute Lymphocyte Count 1.33 X10^3/uL (0.83-4.51); Absolute Neutrophil Count 2.4 X10^3/uL (2.0-7.7); Basophil# 0.04 X10^3/uL; Basophil% 0.9 % (0-1); Eosinophil# 0.09 X10^3/uL; Eosinophils% 2.1 % (0-5); Hematocrit 44.7 % (40-54); Hemoglobin 14.6 g/dL (13.0-16.5); Lymphocyte # 1.33 X10^3/ul (0.83-4.51); Lymphocyte % 31.3 % (19-41); Mean Corp Hgb Conc 32.7 g/dL (32-36); Mean Corpuscular Hgb 31.8 pg (27.0-32.0); Mean Corpuscular Volume 97.4 fL (80-94); Mean Platelet Vol. 9.8 fl (6.2-12.0); Monocyte# 0.41 X10^3/uL; Monocyte% 9.6 % (0-10); NRBC Flagged by Analyzer 0 % (0-5); Neutrophil # 2.36 X10^3/uL (2.7-7.7); Neutrophil % 55.6 % (47-70); Platelet Count 181 K/mm3 (150-450); RBC Distribution Width CV 12.8 % (11.6-14.6); RBC Distribution Width SD 45.6 fl (35.1-43.9); Red Blood Count 4.59 M/mm3 (4.6-6.2); White Blood Count 4.3 K/mm3 (4.4-11.0)
[2024-04-05 12:45] LABS: AST(SGOT) 25 U/L (15-37); Alanine Aminotransfer ALT/SGPT 28 U/L (16-61); Albumin, Serum 3.4 g/dL (3.2-5.0); Alkaline Phosphatase 91 U/L (45-117); Bilirubin, Direct 0.19 mg/dL (0.00-0.30); Globulin 3.2 g/dL (2.2-4.2); Protein, Total 6.6 g/dL (6.4-8.2)
== END | disposition home or self-care (01) ==
LOC: MTLAB 09:37
PROVIDERS: PCP Internal Medicine; Referring Provider Internal Medicine; Visit Provider Internal Medicine
DX: K75.4 Autoimmune hepatitis (principal)
CPT/HCPCS: 36415; 80076; 85025

== ENCOUNTER → 2024-05-01 | Outpatient (CLI) | payer MEDICARE, BC, SELFPAY ==
[2024-05-01 10:36] LABS: Bacteria 0 SEEN /hpf (None Seen); Mucous, Urine 0 SEEN /hpf (<or=2+); Red Blood Cells-Urine 0 SEEN /hpf (0-5); Squamous Epithelial Cells - UA 0 SEEN /hpf (0-5); White Blood Cells 0 SEEN /hpf (0-5)
[2024-05-01 10:42] LABS: Absolute Neutrophil Count 2.7 X10^3/uL (2.0-7.7); Basophil# 0.04 X10^3/uL; Basophil% 0.9 % (0-1); Eosinophil# 0.08 X10^3/uL; Eosinophils% 1.7 % (0-5); Hematocrit 48.7 % (40-54); Lymphocyte % 29.8 % (19-41); Mean Corp Hgb Conc 32.9 g/dL (32-36); Mean Corpuscular Hgb 32.1 pg (27.0-32.0); Mean Corpuscular Volume 97.8 fL (80-94); Mean Platelet Vol. 9.7 fl (6.2-12.0); Monocyte# 0.49 X10^3/uL; Monocyte% 10.4 % (0-10); NRBC Flagged by Analyzer 0 % (0-5); Neutrophil # 2.68 X10^3/uL (2.7-7.7); Platelet Count 173 K/mm3 (150-450); RBC Distribution Width SD 46.8 fl (35.1-43.9); Red Blood Count 4.98 M/mm3 (4.6-6.2); White Blood Count 4.7 K/mm3 (4.4-11.0)
[2024-05-01 10:59] LABS: Color, Urine Yellow (Yellow); Glucose, Dipstick Normal (Normal); Ketone-Dipstick Negative (Negative); Leukocyte Esterase-Dipstick Negative /ul (Negative); Nitrite-Dipstick Negative (Negative); Occult Blood-Urine Negative /ul (Negative); Protein-Dipstick Negative (Negative); Urine Bilirubin Dipstick Negative (Negative); Urine Clarity Clear (Clear); Urine Urobilinogen Normal (Normal)
[2024-05-01 11:19] LABS: ALB/GLOB Ratio 1.4 RATIO (0.9-2.4); AST(SGOT) 23 U/L (15-37); Alanine Aminotransfer ALT/SGPT 29 U/L (16-61); Albumin, Serum 4.1 g/dL (3.2-5.0); Alkaline Phosphatase 103 U/L (45-117); Anion Gap 6 (5-15); BUN 24 mg/dL (7-18); BUN/Creat Ratio 21.4 RATIO (10-20); Calcium,Total 9.3 mg/dL (8.5-10.1); Chloride 105 mmol/L (98-107); Creatinine, Serum 1.12 mg/dL (0.70-1.30); EST Glomerular Filtration Rate 69 mL/min (>60); Est Glom Filt Rate - Afr Amer 83 mL/min (>60); Glucose 92 mg/dL (74-106); Potassium 4.1 mmol/L (3.5-5.1); Protein, Total 7.1 g/dL (6.4-8.2); Sodium Level 141 mmol/L (136-145)
[2024-05-01 11:24] LABS: Microalbumin,Random Urine < 5.0 mg/L (NO RANGE EST.)
== END | disposition home or self-care (01) ==
LOC: LABSPEC 10:27
PROVIDERS: PCP Internal Medicine; Referring Provider Internal Medicine; Visit Provider Internal Medicine
DX: I10 Essential (primary) hypertension (principal)
CPT/HCPCS: 80053; 81001; 82043; 82570; 85025

== ENCOUNTER 2024-06-06 08:50 | Outpatient (CLI) | payer MEDICARE, BC, SELFPAY ==
--- NOTE | 2024-06-06 08:53 | BD_ITS ---
STUDY: DUAL ENERGY X-RAY ABSORPTIOMETRY / DXA REASON FOR EXAM: Male, 68 years old. 733.90OsteopeniaBONE DENSITY REASON FOR EXAM TECHNIQUE: Bone Mineral Density (BMD) measurements of lumbar spine and left hip were obtained. COMPARISON: Comparison is made with prior study dated April 06, 2022. FINDINGS: Lumbar Spine (L1-L4): g/cm2 (1.187) / T-score (0.9) / Z-score (1.8) Findings are suggestive of normal bone density with a low fracture risk. Left Femur Total: g/cm2 (0.925) / T-score (-0.7) / Z-score (-0.1) Left Femoral Neck: g/cm2 (0.671) / T-score (-1.9) / Z-score (-0.7) The T-Scores on the most recent prior examination were: Lumbar Spine (L1-L4): There has been worsening of bone density since the previous examination. Left Femur Total: which represents a worsening of 5.8%. BD/Dexa Bone Density Study IMPRESSION: The patient is considered osteopenic as outlined below according to World Jamar Organization (WHO) criteria with a moderate fracture risk. There has been worsening of bone density since the previous examination. Reference Information: The T-score is the number of standard deviations above or below the standard which is normal for young adults at their peak bone mineral density. The World Health Organization (WHO) interprets the T-scores as follows: Above -1 Normal bone density Between -1 and -2.5 Osteopenia Equal to / or below -2.5 Osteoporosis As a practical clinical guideline, osteopenia may be graded as follows: Mild -1 through -1.5 Moderate -1.6 through -2.0 Severe -2.1 through -2.4 The Z-score is the number of standard deviations above or below age-matched controls. A Z-score of less than -1.5 would be considered abnormal. References: 1. NIH Osteoporosis and Related Bone Diseases www osteo.org 2. International Society for Clinical Densitometry www iscd.org 3. National Osteoporosis Foundation www nof.org Electronically Signed: Jelani Miller MD at 12:40 EDT ,
== END 2024-06-06 23:59 | disposition home or self-care (01) ==
LOC: OPBD 08:50
PROVIDERS: PCP Internal Medicine; Referring Provider Internal Medicine; Visit Provider Internal Medicine
DX: M85.89 Other specified disorders of bone density and structure, multiple sites (principal)
CPT/HCPCS: 77080

== ENCOUNTER → 2024-06-17 | Outpatient (CLI) | payer MEDICARE, BC, SELFPAY ==
--- NOTE | 2024-06-17 07:05 | CT_ITS ---
STUDY: CTA CHEST REASON FOR EXAM: Male, 68 years old. Known thoracic aortic aneurysm RADIATION DOSAGE (If Supplied By Facility): CTDIvol = ( 7.62 ) mGy, DLP = ( 348.84 ) mGycm TECHNIQUE: The examination was performed with the intravenous administration of IV 100mL Isovue-370. Post-processing of the angiographic images was performed, with multiplanar reformation and 3D reconstruction. Individualized dose optimization techniques were used for this CT. COMPARISON: 06/20/2023 FINDINGS: Normal enhancement of the main pulmonary artery and right and left pulmonary arteries. Normal enhancement of the bilateral peripheral pulmonary arteries. There is no demonstrated pulmonary embolism. There is stable dilatation of the ascending thoracic aorta at 4.1 cm unchanged from the previous study. No significant mural thrombus There is no demonstrated aortic dissection. Normal heart and pericardium. Normal mediastinum. Normal hilar regions. There is peribronchial thickening. The lungs are well expanded. Normal pulmonary parenchyma. Normal pleura. Normal chest wall structures. Normal osseous structures. Normal visualized upper abdomen. CT/CTA Chest W/WO Contrast IMPRESSION: No demonstrated PE Stable dilatation of the ascending thoracic aorta at 4.1 cm. No evidence of dissection Chronic interstitial changes in both lung casiano with evidence of chronic bronchitis but no superimposed acute pulmonary process No suspicious adenopathy Electronically Signed: Juan Josue MD at 8:22 EDT ,
[2024-06-17 07:58] LABS: CREATININE FINGERSTICK < 1.0 mg/dL (0.70-1.30); EGFR FINGERSTICK > 60.0000 mL/min (>60)
== END | disposition home or self-care (01) ==
LOC: CT 07:05
PROVIDERS: PCP Internal Medicine; Referring Provider Internal Medicine; Visit Provider Internal Medicine
DX: I77.810 Thoracic aortic ectasia (principal)
CPT/HCPCS: 71275; Q9967

== ENCOUNTER → 2024-06-25 | Outpatient (CLI) | payer MEDICARE, BC, SELFPAY ==
--- NOTE | 2024-06-25 10:54 | US_ITS ---
HISTORY: autoimmune hepatitis. TECHNIQUE: Holloway scale and color doppler imaging was performed of the right upper quadrant. 83 images. COMPARISON: 12/25/2023. FINDINGS: LIVER: 16.5 cm in length. Mildly heterogeneous echotexture without focal lesion demonstrated. No intrahepatic ductal dilatation. MAIN PORTAL VEIN: Patent with flow in the appropriate direction. COMMON BILE DUCT: 3 mm in diameter. GALLBLADDER: No shadowing gallstones. Probable mild sludge. 2 mm wall thickness. No pericholecystic fluid. Sonographic Quintero sign negative. PANCREAS: Visualized proximal portion unremarkable. RIGHT KIDNEY: 10.1 cm in length. No hydronephrosis or gross renal mass demonstrated. US/Abdomen Limited IMPRESSION: Chronic heterogeneity of the liver from hepatic steatosis or other hepatocellular disease. Probable mild biliary sludge without sonographic evidence of cholelithiasis. Electronically Signed: Paula Chambers MD at 10:17 EDT ,
--- NOTE | 2024-06-25 10:54 | US_ITS ---
EXAM: US SOFT TISSUES HEAD AND NECK, THYROID CLINICAL INDICATION: thyroid nodule TECHNIQUE: Greyscale and color doppler imaging was performed of the thyroid gland. COMPARISON: 04/29/2023. FINDINGS: LEFT THYROID LOBE: Unremarkable. Homogeneous echotexture with normal vascularity. No thyroid nodules are present. The left lobe of the thyroid lobe measures 3.9 x 1.3 x 1.0 cm. RIGHT THYROID LOBE: Solid nodule measuring 1.7 x 1.2 x 1.4 cm inferior right lobe of the thyroid is hyperechoic, wider than tall, smooth, without echogenic foci. Solid nodule measuring 1.3 x 0.9 x 1.1 cm inferior right lobe of the thyroid is isoechoic, wider than tall, smooth, without echogenic foci. The right lobe of the thyroid lobe measures 4.9 x 1.8 x 1.8 cm. ISTHMUS: Unremarkable. No thyroid nodules are present. The isthmus measures 0.2 cm in thickness. US/Thyroid IMPRESSION: 1. Solid nodule measuring 1.7 x 1.2 x 1.4 cm inferior right lobe of the thyroid is hyperechoic, wider than tall, smooth, without echogenic foci. No significant change since previous exam. TI-RADS points: 3. TI-RADS category: TR3. This nodule is mildly suspicious. Recommend follow-up thyroid ultrasounds at 2 and 4 years. 2. Solid nodule measuring 1.3 x 0.9 x 1.1 cm inferior right lobe of the thyroid is isoechoic, wider than tall, smooth, without echogenic foci. No significant change since previous exam. TI-RADS points: 3. TI-RADS category: TR3. This nodule is mildly suspicious but no FNA or follow-up is necessary given the small size of this nodule. Electronically Signed: Wiley Al MD at 2:53 EDT ,
== END | disposition home or self-care (01) ==
LOC: US 10:53
PROVIDERS: PCP Internal Medicine; Referring Provider Internal Medicine; Visit Provider Internal Medicine
DX: K75.4 Autoimmune hepatitis (principal); E04.1 Nontoxic single thyroid nodule
CPT/HCPCS: 76536; 76705

== ENCOUNTER → 2024-07-03 | Outpatient (CLI) | payer MEDICARE, BC, SELFPAY ==
[2024-07-03 12:18] LABS: Absolute Lymphocyte Count 1.38 X10^3/uL (0.83-4.51); Absolute Neutrophil Count 3.1 X10^3/uL (2.0-7.7); Basophil# 0.03 X10^3/uL; Basophil% 0.6 % (0-1); Eosinophil# 0.04 X10^3/uL; Eosinophils% 0.8 % (0-5); Hematocrit 46.4 % (40-54); Hemoglobin 15.9 g/dL (13.0-16.5); Lymphocyte # 1.38 X10^3/ul (0.83-4.51); Lymphocyte % 27.8 % (19-41); Mean Corp Hgb Conc 34.3 g/dL (32-36); Mean Corpuscular Hgb 33.5 pg (27.0-32.0); Mean Corpuscular Volume 97.7 fL (80-94); Mean Platelet Vol. 9.1 fl (6.2-12.0); Monocyte# 0.41 X10^3/uL; Monocyte% 8.2 % (0-10); NRBC Flagged by Analyzer 0 % (0-5); Neutrophil # 3.09 X10^3/uL (2.7-7.7); Neutrophil % 62.2 % (47-70); Platelet Count 161 K/mm3 (150-450); RBC Distribution Width CV 12.6 % (11.6-14.6); RBC Distribution Width SD 45.5 fl (35.1-43.9); Red Blood Count 4.75 M/mm3 (4.6-6.2)
[2024-07-03 13:23] LABS: AST(SGOT) 18 U/L (15-37); Alanine Aminotransfer ALT/SGPT 29 U/L (16-61); Albumin, Serum 3.8 g/dL (3.2-5.0); Alkaline Phosphatase 76 U/L (45-117); Bilirubin, Direct 0.17 mg/dL (0.00-0.30); Globulin 3.1 g/dL (2.2-4.2); Protein, Total 6.9 g/dL (6.4-8.2)
[2024-07-04 08:13] LABS: AFP, Tumor Marker 2.1 ng/mL (0.0-8.4)
== END | disposition home or self-care (01) ==
PROVIDERS: PCP Internal Medicine; Referring Provider Internal Medicine; Visit Provider Internal Medicine
DX: K75.4 Autoimmune hepatitis (principal)
CPT/HCPCS: 36415; 80076; 82105; 85025

== ENCOUNTER → 2024-10-11 | Outpatient (CLI) | payer MEDICARE, BC, SELFPAY ==
[2024-10-11 10:40] LABS: Absolute Lymphocyte Count 1.29 X10^3/uL (0.83-4.51); Basophil# 0.01 X10^3/uL; Basophil% 0.3 % (0-1); Eosinophil# 0.02 X10^3/uL; Eosinophils% 0.5 % (0-5); Hematocrit 44.6 % (40-54); Hemoglobin 14.8 g/dL (13.0-16.5); Lymphocyte # 1.29 X10^3/ul (0.83-4.51); Lymphocyte % 34.8 % (19-41); Mean Corp Hgb Conc 33.2 g/dL (32-36); Mean Corpuscular Volume 96.3 fL (80-94); Mean Platelet Vol. 9.6 fl (6.2-12.0); Monocyte# 0.39 X10^3/uL; Monocyte% 10.5 % (0-10); NRBC Flagged by Analyzer 0 % (0-5); Neutrophil % 53.9 % (47-70); Platelet Count 167 K/mm3 (150-450); RBC Distribution Width CV 11.9 % (11.6-14.6); RBC Distribution Width SD 42.3 fl (35.1-43.9); Red Blood Count 4.63 M/mm3 (4.6-6.2); White Blood Count 3.7 K/mm3 (4.4-11.0)
[2024-10-11 11:46] LABS: AST(SGOT) 18 U/L (15-37); Alanine Aminotransfer ALT/SGPT 22 U/L (16-61); Albumin, Serum 3.6 g/dL (3.2-5.0); Alkaline Phosphatase 58 U/L (45-117); Bilirubin, Direct 0.26 mg/dL (0.00-0.30); Globulin 3.3 g/dL (2.2-4.2); Protein, Total 6.9 g/dL (6.4-8.2)
== END | disposition home or self-care (01) ==
LOC: MTLAB 09:28
PROVIDERS: PCP Internal Medicine; Referring Provider Internal Medicine; Visit Provider Internal Medicine
DX: M54.16 Radiculopathy, lumbar region (principal); K75.4 Autoimmune hepatitis; R73.01 Impaired fasting glucose
CPT/HCPCS: 36415; 80076; 85025

== ENCOUNTER → 2024-11-05 | Outpatient (CLI) | payer MEDICARE, BC, SELFPAY ==
[2024-11-05 11:02] LABS: Absolute Lymphocyte Count 1.77 X10^3/uL (0.83-4.51); Absolute Neutrophil Count 2.7 X10^3/uL (2.0-7.7); Basophil# 0.02 X10^3/uL; Basophil% 0.4 % (0-1); Eosinophil# 0.07 X10^3/uL; Eosinophils% 1.4 % (0-5); Hematocrit 45.4 % (40-54); Lymphocyte # 1.77 X10^3/ul (0.83-4.51); Lymphocyte % 34.5 % (19-41); Mean Corpuscular Hgb 32.5 pg (27.0-32.0); Mean Corpuscular Volume 98.5 fL (80-94); Mean Platelet Vol. 9.4 fl (6.2-12.0); Monocyte# 0.57 X10^3/uL; Monocyte% 11.1 % (0-10); NRBC Flagged by Analyzer 0 % (0-5); Neutrophil # 2.68 X10^3/uL (2.7-7.7); Neutrophil % 52.2 % (47-70); Platelet Count 166 K/mm3 (150-450); RBC Distribution Width CV 13.3 % (11.6-14.6); RBC Distribution Width SD 48.2 fl (35.1-43.9); Red Blood Count 4.61 M/mm3 (4.6-6.2); White Blood Count 5.1 K/mm3 (4.4-11.0)
[2024-11-05 17:55] LABS: PTHIN 27 pg/mL (11-61)
[2024-11-06 05:40] LABS: ALB/GLOB Ratio 2.1 RATIO (0.9-2.4); AST(SGOT) 20 U/L (<=37); Alanine Aminotransfer ALT/SGPT 15 U/L (<=46); Albumin, Serum 4.5 g/dL (3.4-4.8); Alkaline Phosphatase 75 U/L (40-129); Anion Gap 11 (5-15); BUN 30 mg/dL (4-19); BUN/Creat Ratio 24.6 RATIO (10-20); Calcium 9.9 mg/dL (7.6-11.0); Carbon Dioxide 28.8 mmol/L (22.0-29.0); Chloride 100 mmol/L (96-108); Creatinine, Serum 1.2 mg/dL (0.8-1.3); EST Glomerular Filtration Rate 64 (>60); Globulin 2.2 g/dL (2.2-4.2); Glucose 92 mg/dL (70-99); PSA,Total - Annual Screen 0.75 ng/mL (0.02-4.00); Potassium 4.1 mmol/L (3.3-5.1); Protein, Total 6.7 g/dL (5.9-8.4); Sodium Level 140 mmol/L (133-145); Total Bilirubin 0.49 mg/dL (0.00-1.30)
[2024-11-06 11:36] LABS: Microalbumin,Random Urine < 12.0 mg/L (NO RANGE EST.)
[2024-11-06 19:30] LABS: Hemoglobin A1c 5.4 % (<=5.6)
[2024-11-07 18:08] LABS: PROEL- A/G Ratio 1.5 (0.7-1.7); PROEL- Albumin 3.9 g/dL (2.9-4.4); PROEL- Alpha-1 Globulin 0.2 g/dL (0.0-0.4); PROEL- Alpha-2 Globulin 0.7 g/dL (0.4-1.0); PROEL- Beta Globulin 0.9 g/dL (0.7-1.3); PROEL- Gamma Globulin 0.8 g/dL (0.4-1.8); PROEL- Globulin, Total 2.6 g/dL (2.2-3.9); PROEL- TOTAL PROTEIN 6.5 g/dL (6.0-8.5); PROEL-M-Spike Not Observed g/dL (Not Observed); PROELU- Albumin, Urine 28.6 % (.); PROELU- Alpha-1-Globulin,Ur 3.4 % (.); PROELU- Alpha-2-Globulin,Ur 21.2 % (.); PROELU- Beta Globulin, Ur 27.4 % (.); PROELU- Gamma Globulin, Ur 19.4 % (.); Total Protein, Ur 8.9 mg/dL (Not Estab.)
== END | disposition home or self-care (01) ==
LOC: MTLAB 07:45
PROVIDERS: PCP Internal Medicine; Referring Provider Internal Medicine; Visit Provider Internal Medicine
DX: R73.01 Impaired fasting glucose (principal); K75.4 Autoimmune hepatitis; I10 Essential (primary) hypertension; Z12.5 Encounter for screening for malignant neoplasm of prostate; M85.80 Other specified disorders of bone density and structure, unspecified site
CPT/HCPCS: 36415; 80053; 82043; 82306; 82570; 83036; 83970; 84153; 84165; 84166; 84403; 84443; 85025; G0103

== ENCOUNTER → 2024-12-17 | Outpatient (CLI) | payer MEDICARE, BC, SELFPAY ==
[2024-12-17 10:40] LABS: Erythrocyte Sedimentation Rate 2 mm/hr (0-20)
[2024-12-17 11:30] LABS: CRP < 3.00 mg/L (0.0-3.0); Rheumatoid Factor < 10.0 IU/mL (<15)
[2024-12-18 12:08] LABS: ANTINUCLEAR ANTIBODIES DIRECT Negative (Negative)
[2024-12-18 15:08] LABS: Angiotensin Convert Enzyme 89 U/L (14-82)
== END | disposition home or self-care (01) ==
LOC: MTLAB 07:36
PROVIDERS: PCP Internal Medicine; Referring Provider Internal Medicine Pulmonary Disease; Visit Provider Internal Medicine Pulmonary Disease
DX: R06.00 Dyspnea, unspecified (principal)
CPT/HCPCS: 36415; 82164; 85652; 86038; 86140; 86431

== ENCOUNTER 2024-12-25 07:25 | Outpatient (CLI) | payer MEDICARE, BC, SELFPAY ==
--- NOTE | 2024-12-25 07:26 | US_ITS ---
PROCEDURE: ABDOMEN LIMITED (USABDL), 12/25/2024 REASON FOR EXAM: ULTRASOUND, ABDOMEN, LIMITED COMPARISON: None FINDINGS: Liver: Borderline slightly echogenic. 16.1 cm in length. Gallbladder: Question faint layering sludge. No visualized stones, wall thickening or pericholecystic fluid. Reportedly, sonographic Quintero's was negative. Biliary tree: Unremarkable. CBD measures 4 mm. Pancreas: Partially obscured by shadowing bowel gas, grossly unremarkable as visualized. Right kidney: Echogenic.. 10.8 cm in length. Other: No visualized free fluid. US/Abdomen Limited IMPRESSION: 1. Borderline slightly echogenic appearance of the liver, a finding typically a ssociated with steatosis however early fibrosis may have a similar appearance. No overt serosal nodularity to confirm cirrhosi s. No biliary dilatation. 2. Findings suggestive of chronic medical renal disease. 3. Additional description as above. Reading Location: [id number]
[2024-12-25 11:20] LABS: Absolute Lymphocyte Count 1.35 X10^3/uL (0.83-4.51); Absolute Neutrophil Count 3.2 X10^3/uL (2.0-7.7); Basophil# 0.03 X10^3/uL; Basophil% 0.6 % (0-1); Eosinophil# 0.09 X10^3/uL; Eosinophils% 1.8 % (0-5); Hematocrit 44.7 % (40-54); Hemoglobin 14.9 g/dL (13.0-16.5); Lymphocyte # 1.35 X10^3/ul (0.83-4.51); Lymphocyte % 26.6 % (19-41); Mean Corp Hgb Conc 33.3 g/dL (32-36); Mean Corpuscular Hgb 32.7 pg (27.0-32.0); Mean Platelet Vol. 9.6 fl (6.2-12.0); Monocyte% 7.9 % (0-10); NRBC Flagged by Analyzer 0 % (0-5); Neutrophil # 3.18 X10^3/uL (2.7-7.7); Neutrophil % 62.7 % (47-70); Platelet Count 182 K/mm3 (150-450); RBC Distribution Width CV 13.2 % (11.6-14.6); RBC Distribution Width SD 47.9 fl (35.1-43.9); Red Blood Count 4.56 M/mm3 (4.6-6.2); White Blood Count 5.1 K/mm3 (4.4-11.0)
[2024-12-25 11:39] LABS: AST(SGOT) 27 U/L (<=37); Alanine Aminotransfer ALT/SGPT 21 U/L (<=46); Albumin, Serum 4.4 g/dL (3.4-4.8); Alkaline Phosphatase 90 U/L (40-129); Bilirubin, Direct 0.22 mg/dL (0.00-0.30); Globulin 2.6 g/dL (2.2-4.2); Total Bilirubin 0.56 mg/dL (0.00-1.30)
[2024-12-25 13:47] LABS: Anion Gap 11 (5-15); BUN 30 mg/dL (4-19); BUN/Creat Ratio 23.3 RATIO (10-20); Calcium,Total 9.5 mg/dL (7.6-11.0); Carbon Dioxide 26.7 mmol/L (21.0-32.0); Chloride 104 mmol/L (98-108); Cholesterol 167 mg/dL (<=200); Creatinine, Serum 1.29 mg/dL (0.70-1.20); EST Glomerular Filtration Rate 60 (>60); Glucose 96 mg/dL (70-99); High Density Lipoprotein 69 mg/dL; Low Density Lipoprotein Calc. 88 mg/dL; Potassium 4.2 mmol/L (3.3-5.1); Sodium Level 142 mmol/L (133-145); Triglycerides 51 mg/dL; Very Low Density Lipoprotein 10 mg/dL (5-40); cholesterol:hdl ratio screen 2.44
[2024-12-25 13:55] LABS: Hemoglobin A1c 5.4 % (<=5.6)
[2024-12-26 04:07] LABS: AFP, Tumor Marker < 1.8 ng/mL (0.0-8.4)
== END 2024-12-25 23:59 | disposition home or self-care (01) ==
PROVIDERS: PCP Internal Medicine; Referring Provider Internal Medicine; Visit Provider Internal Medicine
DX: K75.4 Autoimmune hepatitis (principal); M54.16 Radiculopathy, lumbar region; R73.01 Impaired fasting glucose
CPT/HCPCS: 36415; 76705; 80048; 80061; 80076; 82105; 82677; 83036; 84702; 85025

== ENCOUNTER → 2025-02-10 | Outpatient (CLI) | payer MEDICARE, BC, SELFPAY ==
[2025-02-10 10:20] LABS: Absolute Neutrophil Count 2.8 X10^3/uL (2.0-7.7); Basophil# 0.03 X10^3/uL; Basophil% 0.6 % (0-1); Hematocrit 44.4 % (40-54); Hemoglobin 15.1 g/dL (13.0-16.5); Lymphocyte % 33.2 % (19-41); Mean Corpuscular Hgb 33.3 pg (27.0-32.0); Mean Corpuscular Volume 97.8 fL (80-94); Mean Platelet Vol. 9.5 fl (6.2-12.0); Monocyte# 0.52 X10^3/uL; Monocyte% 10.2 % (0-10); NRBC Flagged by Analyzer 0 % (0-5); Neutrophil # 2.75 X10^3/uL (2.7-7.7); Neutrophil % 53.6 % (47-70); Platelet Count 167 K/mm3 (150-450); RBC Distribution Width CV 11.9 % (11.6-14.6); RBC Distribution Width SD 42.6 fl (35.1-43.9); Red Blood Count 4.54 M/mm3 (4.6-6.2); White Blood Count 5.1 K/mm3 (4.4-11.0)
[2025-02-10 12:33] LABS: ALB/GLOB Ratio 1.8 RATIO (0.9-2.4); AST(SGOT) 29 U/L (<=37); Alanine Aminotransfer ALT/SGPT 28 U/L (<=46); Albumin, Serum 4.4 g/dL (3.4-4.8); Alkaline Phosphatase 88 U/L (40-129); Anion Gap 10 (5-15); BUN 30 mg/dL (4-19); BUN/Creat Ratio 25.8 RATIO (10-20); Calcium,Total 9.6 mg/dL (7.6-11.0); Carbon Dioxide 27.3 mmol/L (21.0-32.0); Chloride 103 mmol/L (98-108); Creatinine, Serum 1.16 mg/dL (0.70-1.20); EST Glomerular Filtration Rate 68 (>60); Globulin 2.4 g/dL (2.2-4.2); Glucose 89 mg/dL (70-99); Potassium 4.2 mmol/L (3.3-5.1); Protein, Total 6.8 g/dL (5.9-8.4); Sodium Level 140 mmol/L (133-145); Total Bilirubin 0.56 mg/dL (0.00-1.30)
[2025-02-10 13:12] LABS: Hemoglobin A1c 5.5 % (<=5.6)
== END | disposition home or self-care (01) ==
LOC: MTLAB 07:02
PROVIDERS: PCP Internal Medicine; Referring Provider Internal Medicine; Visit Provider Internal Medicine
DX: R73.01 Impaired fasting glucose (principal); I10 Essential (primary) hypertension; E04.1 Nontoxic single thyroid nodule
CPT/HCPCS: 36415; 80053; 83036; 84443; 85025

== ENCOUNTER → 2025-06-18 | Outpatient (CLI) | payer MEDICARE, BC, SELFPAY ==
--- NOTE | 2025-06-18 07:24 | CT_ITS ---
PROCEDURE: CTA CHEST W/WO CONTRAST 06/18/2025 REASON FOR EXAM: CTA CHEST W T W/O CONTRAST - DILATION OF THORACIC AORTIC TECHNIQUE: Procedure Code: [id number] Modality: CT Procedure: CTA CHEST W/WO CONTRAST Multiplanar Sagittal and Coronal images were obtained. 3D post processing was performed CONTRAST: Isovue-300 VOLUME: 99 mL One or more dose reduction techniques were used (e.g., Automated exposure control, adjustment of the mA and/or kV according to patient size, use of iterative reconstruction technique). RADIATION DOSE SUMMARY: CTDlvol: 15 mGy DLP: 315 mGycm COMPARISON: June 17, 2024 # of known CTs in the past 12 months: 0 # of known Cardiac Nuclear Medicine Studies in the past 12 months: 0 FINDINGS: Thoracic Aorta: No evidence of aortic rupture or dissection. The branching pattern of the aortic arch is conventional. Measurements (cm): Aortic valve: 3.3 cm Sinuses of Valsalva: 4.6 cm Sinotubular junction: 3.7 cm Mid ascendin.9 cm Proximal aortic arch: 3.8 cm Mid aortic arch: 2.5 cm Proximal descendin.4 cm Mid descendin.4 cm Aorta at diaphragm: 2.1 cm Aorta at celiac axis: 2.2 cm Heart: Normal-size. No pericardial effusion. Coronary arteries are unremarkable. Pulmonary Vessels: The timing and quality of the contrast bolus is diagnostic. There is no evidence of acute or chronic pulmonary embolus. Hardware: None Lymph nodes: None appear enlarged. Lungs and Airways: Along the major fissure there is a noncalcified, 4 mm nodule favored to represent intrapulmonary lymph node on image 75. Pleura: No pleural effusion or pneumothorax. Upper Abdomen: Unremarkable Bones: Degenerative changes of the thoracic spine. Subcentimeter thyroid nodules right lobe thyroid of the mid and lower pole. CT/CTA Chest W/WO Contrast IMPRESSION: 1. No acute aortic syndrome. Dimensions above. 2. No evidence of acute or chronic pulmonary embolus. Reading Location: [id number]
--- NOTE | 2025-06-18 07:24 | US_ITS ---
PROCEDURE: THYROID 06/18/2025 REASON FOR EXAM: THYROID US - THYROID NODULE TECHNIQUE: Procedure Code: USTHY Modality: US Procedure: THYROID COMPARISON: Thyroid ultrasound, 06/25/2024. FINDINGS: Right thyroid lobe size: 5.7 x 2.2 x 2.1 cm (was 4.9 x 1.8 x 1.8 cm). Interpolar, 1.8 x 1.5 x 1.3 cm (was 1.7 x 1.4 x 1.2 cm), solid, hyperechoic with an irregular margin and multiple punctate echogenic foci. TR 5. Lower pole, 1.5 x 1.0 x 0.8 cm (was 1.3 x 1.1 x 0.9 cm), solid, heterogeneous, with a smooth margin. TR 3. Left thyroid lobe size: 4.6 x 1.5 x 1.0 cm (was 3.9 x 1.3 x 1.0 cm). Predominantly homogeneous with no significant nodules. Isthmus: 3 mm (was 2 mm) US/Thyroid IMPRESSION: TR 5 nodule in the right thyroid lobe greater than 1 cm, recommend FNA. Reading Location: [id number]
--- NOTE | 2025-06-18 07:24 | US_ITS ---
PROCEDURE: ABD LIMITED W/ ELASTOGRAPHY REASON FOR EXAM: AUTOIMMUNE HEPATITIS COMPARISON: Prior study dated December 25, 2024. TECHNIQUE: Procedure Code: [id number] Modality: US Procedure: ABD LIMITED W/ ELASTOGRAPHY Right upper quadrant abdominal ultrasound. [facility] ElastQ Imaging shear wave elastography for non-invasive assessment of liver tissue stiffness. [employer] EPIQ Elite. FINDINGS: LIVER: Size: Unremarkable Length: 16.4 cm Echotexture: Normal Contour: Normal Lesions: None identified Elastography: EQI Med: 4.4 kPa EQI Med Sergo: 1.22 m/s IQR/Med: 21.3 %* GALLBLADDER: No stones sludge wall thickening or tenderness. COMMON BILE DUCT: Normal . PANCREAS: Normal Visualized portions of the right kidney are unremarkable. No right upper quadrant ascites. US/ABD Limited w/ Elastography IMPRESSION: No significant liver fibrosis. Reference Values: SRU <1.37 m/s (5.7kPa): No to mild fibrosis 1.37 m/s - 2.2 m/s: Moderate to severe fibrosis >2.2 m/s (15kPa): Significant fibrosis / cirrhosis METAVIR Score F2 or higher: 1.34 m/s (5.7kPa) F3 or higher: 1.55 m/s (7.3kPa) F4: 1.80 m/s (10kPa) * If the IQR/Med is >30%, the variance in the measurements is a large and the a ccuracy of the measurement may be in question. Reading Location: [id number]
== END | disposition home or self-care (01) ==
PROVIDERS: PCP Internal Medicine; Referring Provider Internal Medicine; Visit Provider Internal Medicine
DX: K75.4 Autoimmune hepatitis (principal); E04.1 Nontoxic single thyroid nodule; I77.810 Thoracic aortic ectasia
CPT/HCPCS: 71275; 76536; 76705; 76981; Q9967; A4216

== ENCOUNTER → 2025-06-30 | Outpatient (CLI) | payer MEDICARE, BC, SELFPAY ==
[2025-06-30 11:05] LABS: Mucous, Urine 0 SEEN /hpf (<or=2+); Red Blood Cells-Urine 0 SEEN /hpf (0-5); Squamous Epithelial Cells - UA 0 SEEN /hpf (0-5)
[2025-06-30 11:11] LABS: Hematocrit 45.5 % (40-54); Hemoglobin 15.5 g/dL (13.0-16.5); Immature Granulocytes Count 0.010 X10^3/uL (0.0-0.0); Mean Corp Hgb Conc 34.1 g/dL (32-36); Mean Corpuscular Volume 96.8 fL (80-94); Mean Platelet Vol. 9.6 fl (6.2-12.0); NRBC Flagged by Analyzer 0 % (0-5); Platelet Count 171 K/mm3 (150-450); RBC Distribution Width CV 12.4 % (11.6-14.6); RBC Distribution Width SD 44.5 fl (35.1-43.9); Red Blood Count 4.70 M/mm3 (4.6-6.2); White Blood Count 4.9 K/mm3 (4.4-11.0)
[2025-06-30 11:12] LABS: Color, Urine Yellow (Yellow); Glucose, Dipstick Normal (Normal); Ketone-Dipstick Negative (Negative); Leukocyte Esterase-Dipstick Negative /ul (Negative); Nitrite-Dipstick Negative (Negative); Occult Blood-Urine Negative /ul (Negative); Protein-Dipstick 15 mg/dl (Negative); Specific Gravity, Urine 1.015 (1.002-1.030); Urine Bilirubin Dipstick Negative (Negative)
[2025-06-30 11:41] LABS: Creatinine, Urine (random) 87.20 mg/dL (39.00-259.00); Microalbumin,Random Urine < 12.0 mg/L (<20 mg/L)
[2025-06-30 11:57] LABS: AST(SGOT) 26 U/L (<=37); Alanine Aminotransfer ALT/SGPT 26 U/L (<=46); Albumin, Serum 4.7 g/dL (3.4-4.8); Alkaline Phosphatase 86 U/L (40-129); Anion Gap 9 (5-15); BUN 30 mg/dL (4-19); BUN/Creat Ratio 27.2 RATIO (10-20); Calcium,Total 9.9 mg/dL (7.6-11.0); Carbon Dioxide 29.5 mmol/L (21.0-32.0); Chloride 103 mmol/L (98-108); Follicle Stimulating Hormone 8.9 mIU/mL; Globulin 2.2 g/dL (2.2-4.2); Glucose 107 mg/dL (70-99); Potassium 5.0 mmol/L (3.3-5.1)
== END | disposition home or self-care (01) ==
PROVIDERS: PCP Internal Medicine; Referring Provider Internal Medicine; Visit Provider Internal Medicine
DX: R73.01 Impaired fasting glucose (principal); K75.4 Autoimmune hepatitis; R79.89 Other specified abnormal findings of blood chemistry; I10 Essential (primary) hypertension
CPT/HCPCS: 80053; 81001; 82043; 82105; 82570; 82670; 83001; 83002; 84402; 84403; 85025

== ENCOUNTER → 2025-07-30 | Outpatient (CLI) | payer MEDICARE, BC, SELFPAY | END | disposition home or self-care (01) | LOC: LABSPEC 15:33 | PROVIDERS: PCP Internal Medicine; Visit Provider Internal Medicine | DX: R80.9 Proteinuria, unspecified (principal) | CPT/HCPCS: 87086 ==

== ENCOUNTER → 2025-07-31 | Outpatient (CLI) | payer SELFPAY | END | disposition home or self-care (01) | PROVIDERS: PCP Internal Medicine; Referring Provider Internal Medicine; Visit Provider Internal Medicine | DX: M85.80 Other specified disorders of bone density and structure, unspecified site (principal) | CPT/HCPCS: 76499 ==